=== PATIENT | male | born 1970 | race African-American/Black ===

== ENCOUNTER 2020-01-20 11:28 | Inpatient (IN) | payer OTHER ==
--- NOTE | 2020-01-20 13:20 | BHS.RME ---
Substance Use & Tx History - Substance Use History Heroin Substance amount: 3 bags Frequency of use: Daily Substance route: Inhalation (ex: sniffing or snorting) Alcohol Substance amount: 8 beers x 12 oz Frequency of use: Daily Substance route: Oral - Last Treatment Date of last treatment: 2015 Where was last treatment: Detox Physical/Psych/Mental Status - Behavior Eye Contact: Normal - Cooperativeness Cooperativeness: Cooperative - Thinking Thought Processes: Logical Thought content: Future oriented - Physical Health Problems Is patient presently having any pain?: No Does patient presently have any injuries (include location): No Does patient currently have a fever: Yes (99.1) COWS - Scale Resting Pulse: 0= [place] 80 or Below Sweatin= Chills/Flushing Restless Observation: 1= Difficult to Sit Still Pupil Size: 0= Normal to Room Light Bone or Joint Aches: 0= None Runny Nose/ Eye Tearin= None GI Upset > 30mins: 2= Nausea/Diarrhea Tremor Observation: 0= None Yawning Observation: 0= None Anxiety or Irritability: 1=Feels Anxious/Irritable Goose Flesh Skin: 0=Smooth Skin COWS Score: 5 CIWA Nausea/Vomitin Muscle Tremors: None Anxiety: 1-Mildly Anxious Agitation: 1-Slight > Activity Paroxysmal Sweats: 1-Minimal Palms Moist Orientation: 0-Oriented Tacttile Disturbances: 0-None Auditory Disturbances: 0-None Visual Disturbances: 2-Mild Sensitivity Headache: 0-None Present CIWA-Ar Total Score: 7
--- NOTE | 2020-01-20 13:24 | HP ---
COWS - Scale Resting Pulse: 0= [place] 80 or Below Sweatin= Chills/Flushing Restless Observation: 1= Difficult to Sit Still Pupil Size: 0= Normal to Room Light Bone or Joint Aches: 0= None Runny Nose/ Eye Tearin= None GI Upset > 30mins: 2= Nausea/Diarrhea Tremor Observation: 0= None Yawning Observation: 0= None Anxiety or Irritability: 1=Feels Anxious/Irritable Goose Flesh Skin: 0=Smooth Skin COWS Score: 5 CIWA Score Nausea/Vomitin Muscle Tremors: None Anxiety: 1-Mildly Anxious Agitation: 1-Slight > Activity Paroxysmal Sweats: 1-Minimal Palms Moist Orientation: 0-Oriented Tacttile Disturbances: 0-None Auditory Disturbances: 0-None Visual Disturbances: 2-Mild Sensitivity Headache: 0-None Present CIWA-Ar Total Score: 7 - Admission Criteria OASAS Guidelines: Admission for Medically Managed Detox: Requires at least one of the followin. CIWA greater than 12 2. Seizures within the past 24 hours 3. Delirium tremens within the past 24 hours 4. Hallucinations within the past 24 hours 5. Acute intervention needed for co occurring medical disorder 6. Acute intervention needed for co occurring psychiatric disorder 7. Severe withdrawal that cannot be handled at a lower level of care (continued vomiting, continued diarrhea, abnormal vital signs) requiring intravenous medication and/or fluids 8. Admitting History and Physical - Smoking History Smoking history: Current every day smoker Have you smoked in the past 12 months: Yes Aproximately how many cigarettes per day: 5 - Alcohol/Substance Use Hx Alcohol Use: Yes (BEER) Admission [facility] Allergies/Adverse Reactions: Allergies Allergy/AdvReac Type Severity Reaction Status Date / Time No Known Allergies Allergy Verified 01/20/20 13:52 History of Present Illness: 49 y.o. male requesting detox from heroin and alcohol use . denies blackouts , seizures or tremors . denies OD . Latest use this morning 3 bags heroin : 3 bags/day since 2017 etoh : 8 beers/day x 12 oz , latest use this morning 3 beers. cocaine : not daily tobacco : 07/23 ppd PMHX : HTN PSHX : umbilical hernia 2 yrs ago PSych : denies current SI / HI , + past psychiatric hospitalization for MDD Exam Limitations: No Limitations - Review of Systems Constitutional: See HPI EENT: reports: No Symptoms Reported Respiratory: reports: No Symptoms reported Cardiac: reports: No Symptoms Reported GI: reports: See HPI, Diarrhea, Nausea, Vomiting : reports: No Symptoms Reported Musculoskeletal: reports: No Symptoms Reported Integumentary: reports: No Symptoms Reported Neuro: reports: No Symptoms reported Endocrine: reports: No Symptoms Reported Hematology: reports: No Symptoms Reported Psychiatric: reports: Orientated x3, Anxious Patient History - Patient Medical History Hx Anemia: No Hx Asthma: No Hx Chronic Obstructive Pulmonary Disease (COPD): No Hx Cancer: No Hx Cardiac Disorders: No Hx Congestive Heart Failure: No Hx Hypertension: Yes Hx Hypercholesterolemia: No Hx Pacemaker: No HX Cerebrovascular Accident: No Hx Seizures: No Hx Dementia: No Hx Diabetes: No Hx Gastrointestinal Disorders: No Hx Liver Disease: No Hx Genitourinary Disorders: No Hx Sexually Transmitted Disorders: No Hx Renal Disease (ESRD): No Hx Thyroid Disease: No Hx Human Immunodeficiency Virus (HIV): No Hx Hepatitis C: No Hx Depression: Yes Hx Suicide Attempt: Yes (cut right forearm in 12/2014) Hx Bipolar Disorder: Yes Hx Schizophrenia: Yes (schizoaffective disorder) - Patient Surgical History Past Surgical History: Yes Hx Neurologic Surgery: No Hx Cataract Extraction: No Hx Cardiac Surgery: No Hx Lung Surgery: No Hx Breast Surgery: No Hx Breast Biopsy: No Hx Abdominal Surgery: No Hx Appendectomy: Yes (at age 12) Hx Cholecystectomy: No Hx Genitourinary Surgery: No Hx Section: No Hx Orthopedic Surgery: No Other Surgical History: right inguinal hernia repair in 1984 Anesthesia Reaction: No - Smoking Cessation Smoking history: Current every day smoker Have you smoked in the past 12 months: Yes Aproximately how many cigarettes per day: 5 Hx Chewing Tobacco Use: No Initiated information on smoking cessation: Yes 'Breaking Loose' booklet given: 01/20/20 - Substances abused Alcohol Substance route: Oral Frequency: Daily Amount used: 8 beers Age of first use: 13 Date of last use: 01/20/20 Heroin Substance route: Inhalation Frequency: Daily Amount used: 3 bags Age of first use: 47 Date of last use: 01/20/20 Admission Physical Exam BHS - Physical General Appearance: Yes: Mild Distress, Anxious HEENTM: Yes: EOMI, Hearing grossly Normal, Normocephalic, Normal Voice Respiratory: Yes: Chest Non-Tender, Lungs Clear, Normal Breath Sounds, No Respiratory Distress, No Accessory Muscle Use Neck: Yes: No masses,lesions,Nodules, Trachea in good position Cardiology: Yes: Regular Rhythm, Regular Rate, S1, S2 Abdominal: Yes: Non Tender, Soft Back: Yes: Normal Inspection Musculoskeletal: Yes: full range of Motion, Gait Steady Extremities: Yes: Normal Capillary Refill, Normal Inspection, Normal Range of Motion, Non-Tender Neurological: Yes: Fully Oriented, Alert, Motor Strength 5/5, Normal Mood/Affect Integumentary: Yes: Warm, Other (R forearm scars form remote injury ( laceration , self- cutting )) - Diagnostic (1) Alcohol dependence Current Visit: Yes Status: Chronic Qualifiers: Substance use status: uncomplicated Qualified Code(s): F10.20 - Alcohol dependence, uncomplicated (2) Opioid dependence Current Visit: Yes Status: Chronic Qualifiers: Substance use status: with intoxication (3) Nicotine dependence Current Visit: Yes Status: Chronic Qualifiers: Nicotine product type: cigarettes Inpatient Rehab Admission - Rehab Decision to Admit Inpatient rehab admission?: No
[2020-01-20] MEDS ORDERED: IBUPROFEN 400 MG TABLET (FP) PO PRN (13:28)
[2020-01-20] MEDS ORDERED: BISMUTH SUBSALICYLATE 524 MG/30 ML UD PO PRN (13:28)
[2020-01-20] MEDS ORDERED: MAGNESIUM CITRATE 300 ML BOTTLE PO PRN (13:28)
[2020-01-20] MEDS ORDERED: MENTHOL/PHENOL 1 EACH UD MM PRN (13:28)
[2020-01-20] MEDS ORDERED: ACETAMINOPHEN 325 MG TABLET (FP) PO PRN ×2 (13:28)
[2020-01-20] MEDS ORDERED: hydrOXYzine PAMOATE 25 MG CAPSULE (FP) PO PRN (13:28)
[2020-01-20] MEDS ORDERED: MAG HYDROX/AL HYDROX/SIMETH 30 ML UNIT-DOSE CUP PO PRN (13:28)
[2020-01-20] MEDS ORDERED: MELATONIN 5 MG TABLETS PO PRN (13:28)
[2020-01-20] MEDS ORDERED: MAGNESIUM HYDROX 2400MG/30ML ORAL SUSPENSION 30 ML CUP PO PRN (13:28)
[2020-01-20] MEDS ORDERED: ONDANSETRON *ODT* 4 MG TABLET SL PRN (13:28)
[2020-01-20] MEDS ORDERED: cloNIDine HCL 0.1 MG TABLET PO PRN (13:31)
[2020-01-20] MEDS ORDERED: diazePAM 5 MG TABLET PO PRN (13:34)
[2020-01-20 13:58] VITALS: BMI 33.3
[2020-01-20] MEDS: diazePAM 5 MG TABLET PO SCH ×2 (14:40→21:48)
--- NOTE | 2020-01-20 16:09 | CONSULT ---
[facility] Psychiatric Consult - Data Date of interview: 01/20/20 Admission source: [facility] Identifying data: Patient is a 49 year old single male, father of two, unemployed, domiciled, and is supported by [facility]. This is one of multiple admissions for patient. Patient admitted to for alcohol and opioid dependence. Substance Abuse History: etoh : 8 beers/day x 12 oz , latest use this morning 3 beers. cocaine : not daily. tobacco : 07/23 ppd Medical History: umbilical hernia 2 yrs ago , hypertension. Psychiatric History: Mr. Andrew reports history of two psychiatric hospitali zations ([facility] in 2018 for depression), most recently at [facility] in [place] in 2019 for depressed mood. Patient reports history of MDD. Unable to recall medications prescribed. States that he last saw an outpatient psychiatrist five years ago while living in [place]. Patient is totally lost in follow up care. Mr. Andrew is a questionable historian. Previous note mention history of multiple psychiatric hospitalizations at [facility] and [facility] in [place], [place]. Patient has been treated with Effexor 25mg and seroquel 300mg. History of a suicide attempt via self-mutilation (wrist-cutting). Previous note reports a history of schizoaffective disorder. At present patient reports difficulty sleeping. Patient denies auditory/visual hallucinations, suicidal/homicidal ideation. Physical/Sexual Abuse/Trauma History: denies. Mental Status Exam - Mental Status Exam Alert and Oriented to: Time, Place, Person Cognitive Function: Good Patient Appearance: Well Groomed Mood: Withdrawn Affect: Mood Congruent Patient Behavior: Fatigued, Cooperative Speech Pattern: Appropriate Voice Loudness: Normal Thought Process: Goal Oriented Thought Disorder: Not Present Hallucinations: Denies Suicidal Ideation: Denies Homicidal Ideation: Denies Insight/Judgement: Poor Sleep: Poorly Appetite: Fair Muscle strength/Tone: Normal Gait/Station: Other (Did not observe patient's gait.) Psychiatric Findings - Problem List ([place] 1, 2,3) (1) Alcohol dependence Status: Acute Qualifiers: Substance use status: uncomplicated Qualified Code(s): F10.20 - Alcohol dependence, uncomplicated (2) Nicotine dependence Status: Chronic Qualifiers: Nicotine product type: cigarettes (3) Opioid dependence Status: Chronic Qualifiers: Substance use status: with intoxication (4) Substance-induced sleep disorder Status: Acute (5) History of schizoaffective disorder Status: Chronic - Initial Treatment Plan Initial Treatment Plan: Psychoeducation provided. Detoxification in progress. Will order Seroquel 100mg HS. Benefits and side effects discussed. Verbal consent given.
[2020-01-20] MEDS: QUEtiapine FUMARATE 100 MG TABLET (FP) PO SCH (21:48)
[2020-01-20] MEDS: THIAMINE HCL 100 MG TABLET (FP) PO SCH (21:48)
[2020-01-20] MEDS ORDERED: METHADONE HCL 10 MG TABLET (FOR DETOX USE ONLY) PO ONE (22:00)
[2020-01-21] MEDS: diazePAM 5 MG TABLET PO SCH ×3 (05:54→22:04)
[2020-01-21] MEDS ORDERED: METHADONE HCL 5 MG TABLET (FOR DETOX USE ONLY) PO ONE (10:00)
[2020-01-21] MEDS: PRENATAL VITAMINS W/ FOLIC ACID TABLET (FP) PO SCH (10:03)
[2020-01-21 10:11] LABS: HEMATOCRIT 39.3 % (35.4-49); HEMOGLOBIN 12.7 GM/dL (11.7-16.9); MCH 26.4 pg (25.7-33.7); MCHC 32.2 g/dl (32.0-35.9); MEAN CELL VOLUME 82.1 fl (80-96); MEAN PLT VOLUME 7.8 fl (7.5-11.1); PLATELET COUNT 261 K/MM3 (134-434); RBC 4.79 M/mm3 (4.00-5.60); RDW 16.2 % (11.9-15.9); WHITE BLOOD COUNT 6.1 K/mm3 (4.0-10.0)
[2020-01-21 10:15] LABS: ALBUMIN 3.8 g/dl (3.4-5.0); BLOOD UREA NITROGEN 14.3 mg/dL (7-18); CALCIUM 8.9 mg/dL (8.5-10.1); POTASSIUM 3.6 mmol/L (3.5-5.1)
[2020-01-21 10:21] LABS: BILIRUBIN,TOTAL 0.4 mg/dL (0.2-1); CREATININE 1.1 mg/dL (0.55-1.3); TOT PROT 7.7 g/dl (6.4-8.2)
[2020-01-21] MEDS: METHOCARBAMOL 500 MG TABLET PO PRN (12:24)
--- NOTE | 2020-01-21 15:49 | PN ---
[facility] CIWA - CIWA Score Nausea/Vomitin-No Nausea/No Vomiting Muscle Tremors: None Anxiety: 3 Agitation: 2 Paroxysmal Sweats: 1-Minimal Palms Moist Orientation: 0-Oriented Tacttile Disturbances: 0-None Auditory Disturbances: 1-Very Mild Visual Disturbances: 1-Very Mild Sensitivity Headache: 0-None Present CIWA-Ar Total Score: 8 S COWS - Scale Resting Pulse: 0= [place] 80 or Below Sweatin= Chills/Flushing Restless Observation: 1= Difficult to Sit Still Pupil Size: 0= Normal to Room Light Bone or Joint Aches: 2= Severe Diffuse Aches Runny Nose/ Eye Tearin= None GI Upset > 30mins: 0= None Tremor Observation of Outstretched Hands: 0= None Yawning Observation: 1= 1-2x During Session Anxiety or Irritability: 2=Irritable/Anxious Goose Flesh Skin: 3=Piloerection COWS Score: 10 S Progress Note (SOAP) Subjective: Body Aches, Sweating, Anxious, Interrupted Sleep. Objective: Patient A & O X 3, Observed Ambulating on Detox Unit Unassisted. In No Acute Distress. 01/21/20 15:48 Vital Signs Temperature 97.3 F L 01/21/20 12:27 Pulse Rate 66 01/21/20 12:27 Respiratory Rate 17 01/21/20 12:27 Blood Pressure 124/80 01/21/20 12:27 O2 Sat by Pulse Oximetry (%) 96 01/21/20 12:27 Laboratory Tests 01/21/20 01/21/20 01/21/20 07:30 07:30 07:30 WBC 6.1 RBC 4.79 Hgb 12.7 Hct 39.3 MCV 82.1 MCH 26.4 MCHC 32.2 RDW 16.2 H Plt Count 261 MPV 7.8 Sodium 137 Potassium 3.6 Chloride 103 Carbon Dioxide 28 Anion Gap 6 L BUN 14.3 Creatinine 1.1 Est GFR (CKD-EPI)AfAm 89.61 Est GFR (CKD-EPI)NonAf 77.32 Random Glucose 155 H Calcium 8.9 Total Bilirubin 0.4 AST 44 H ALT 43 Alkaline Phosphatase 84 Total Protein 7.7 Albumin 3.8 Syphilis Serology Non-reactive Lab Results noted. No known history of DM reported by Patient at time of Detox Admission Physical assessment. 01/21/20 15:49 Assessment: 01/21/20 15:49 WITHDRAWAL SYMPTOMS. HYPERGLYCEMIA. Plan: Continue Detox. Increase Daily Oral Water Intake. Fasting Glucose Level ordered for Tomorrow AM for elevated Random Glucose Level noted on Detox Admission laboratory assessment.
[2020-01-21] MEDS: QUEtiapine FUMARATE 100 MG TABLET (FP) PO SCH (22:04)
[2020-01-21] MEDS: THIAMINE HCL 100 MG TABLET (FP) PO SCH (22:05)
[2020-01-22] MEDS: diazePAM 5 MG TABLET PO SCH ×2 (05:34→17:21)
[2020-01-22] MEDS ORDERED: METHADONE HCL 10 MG TABLET (FOR DETOX USE ONLY) PO ONE (10:00)
[2020-01-22] MEDS: PRENATAL VITAMINS W/ FOLIC ACID TABLET (FP) PO SCH (10:40)
[2020-01-22] MEDS: METHOCARBAMOL 500 MG TABLET PO PRN (12:25)
--- NOTE | 2020-01-22 12:41 | PN ---
[facility] CIWA - CIWA Score Nausea/Vomitin-No Nausea/No Vomiting Muscle Tremors: 2 Anxiety: 2 Agitation: 2 Paroxysmal Sweats: No Perspiration Orientation: 0-Oriented Tacttile Disturbances: 0-None Auditory Disturbances: 0-None Visual Disturbances: 0-None Headache: 0-None Present CIWA-Ar Total Score: 6 [facility] COWS - Scale Resting Pulse: 0= [place] 80 or Below Sweatin= Chills/Flushing Restless Observation: 1= Difficult to Sit Still Pupil Size: 0= Normal to Room Light Bone or Joint Aches: 1= Mild Discomfort Runny Nose/ Eye Tearin= None GI Upset > 30mins: 0= None Tremor Observation of Outstretched Hands: 1= Tremor [place], Not Seen Yawning Observation: 0= None Anxiety or Irritability: 2=Irritable/Anxious Goose Flesh Skin: 0=Smooth Skin COWS Score: 6 S Progress Note (SOAP) Subjective: Complaints of chills, anxiety, body aches and shakes. Objective: 01/22/20 12:39 Vital Signs 01/22/20 01/22/20 01/22/20 05:21 06:28 08:31 Temperature 97.5 F L 98.2 F Pulse Rate 68 72 Respiratory 16 16 18 Rate Blood Pressure 131/86 154/89 O2 Sat by Pulse 97 Oximetry (%) Laboratory Last Values WBC 6.1 K/mm3 (4.0-10.0) 01/21/20 07:30 RBC 4.79 M/mm3 (4.00-5.60) 01/21/20 07:30 Hgb 12.7 GM/dL (11.7-16.9) 01/21/20 07:30 Hct 39.3 % (35.4-49) 01/21/20 07:30 MCV 82.1 fl (80-96) 01/21/20 07:30 MCH 26.4 pg (25.7-33.7) 01/21/20 07:30 MCHC 32.2 g/dl (32.0-35.9) 01/21/20 07:30 RDW 16.2 % (11.9-15.9) H 01/21/20 07:30 Plt Count 261 K/MM3 (134-434) 01/21/20 07:30 MPV 7.8 fl (7.5-11.1) 01/21/20 07:30 Sodium 137 mmol/L (136-145) 01/21/20 07:30 Potassium 3.6 mmol/L (3.5-5.1) 01/21/20 07:30 Chloride 103 mmol/L (98-107) 01/21/20 07:30 Carbon Dioxide 28 mmol/L (21-32) 01/21/20 07:30 Anion Gap 6 MMOL/L (8-16) L 01/21/20 07:30 BUN 14.3 mg/dL (7-18) 01/21/20 07:30 Creatinine 1.1 mg/dL (0.55-1.3) 01/21/20 07:30 Est GFR (CKD-EPI)AfAm 89.61 01/21/20 07:30 Est GFR (CKD-EPI)NonAf 77.32 01/21/20 07:30 Random Glucose 155 mg/dL (74-106) H 01/21/20 07:30 Fasting Glucose 93 mg/dL (74-106) 01/22/20 07:35 Calcium 8.9 mg/dL (8.5-10.1) 01/21/20 07:30 Total Bilirubin 0.4 mg/dL (0.2-1) 01/21/20 07:30 AST 44 U/L (15-37) H 01/21/20 07:30 ALT 43 U/L (13-61) 01/21/20 07:30 Alkaline Phosphatase 84 U/L (45-117) 01/21/20 07:30 Total Protein 7.7 g/dl (6.4-8.2) 01/21/20 07:30 Albumin 3.8 g/dl (3.4-5.0) 01/21/20 07:30 Syphilis Serology Non-reactive (NONREACTIVE) 01/21/20 07:30 Labs reviewed. Assessment: 01/22/20 12:39 Alert and oriented x3, in no acute respiratory distress Full ROM, skin warm to touch, ambulatory on unit without assistance. Mild withdrawal symptoms. Plan: Continue detox protocol.
--- NOTE | 2020-01-22 14:24 | EKG ---
Test Reason : Blood Pressure : / mmHG Vent. Rate : 077 BPM Atrial Rate : 077 BPM P-R Int : 158 ms QRS Dur : 102 ms QT Int : 406 ms P-R-T Axes : 059 065 049 degrees QTc Int : 459 ms NORMAL SINUS RHYTHM POSSIBLE LEFT ATRIAL ENLARGEMENT BORDERLINE ECG NO PREVIOUS ECGS AVAILABLE Confirmed by ALBERTO ANDERSON MD ([id number]) on 01/22/2020 2:24:10 PM Referred By: Confirmed By:ALBERTO ANDERSON MD
[2020-01-22] MEDS: QUEtiapine FUMARATE 100 MG TABLET (FP) PO SCH (21:52)
[2020-01-22] MEDS: THIAMINE HCL 100 MG TABLET (FP) PO SCH (21:52)
[2020-01-23] MEDS ORDERED: diazePAM 5 MG TABLET PO ONE (06:00)
[2020-01-23] MEDS ORDERED: METHADONE HCL 5 MG TABLET (FOR DETOX USE ONLY) PO ONE (06:00)
[2020-01-23] MEDS: PRENATAL VITAMINS W/ FOLIC ACID TABLET (FP) PO SCH (10:06)
--- NOTE | 2020-01-23 11:53 | PN ---
[facility] CIWA - CIWA Score Nausea/Vomitin-No Nausea/No Vomiting Muscle Tremors: None Anxiety: 0-No Anxiety, at Ease Agitation: 1-Slight > Activity Paroxysmal Sweats: No Perspiration Orientation: 0-Oriented Tacttile Disturbances: 0-None Auditory Disturbances: 0-None Visual Disturbances: 0-None Headache: 0-None Present CIWA-Ar Total Score: 1 S COWS - Scale Resting Pulse: 0= [place] 80 or Below Sweatin= No chills or Flushing Restless Observation: 0= Sits Still Pupil Size: 0= Normal to Room Light Bone or Joint Aches: 0= None Runny Nose/ Eye Tearin= None GI Upset > 30mins: 0= None Tremor Observation of Outstretched Hands: 0= None Yawning Observation: 0= None Anxiety or Irritability: 1=Feels Anxious/Irritable Goose Flesh Skin: 0=Smooth Skin COWS Score: 1 [facility] Progress Note (SOAP) Subjective: alert,no complaint Objective: 01/23/20 11:48 Vital Signs Temperature 97.8 F 01/23/20 08:28 Pulse Rate 72 01/23/20 08:28 Respiratory Rate 18 01/23/20 08:28 Blood Pressure 134/88 01/23/20 08:28 O2 Sat by Pulse Oximetry (%) 95 01/23/20 05:35 withdrawal signs and symptom 01/23/20 11:50 Laboratory Last Values WBC 6.1 K/mm3 (4.0-10.0) 01/21/20 07:30 RBC 4.79 M/mm3 (4.00-5.60) 01/21/20 07:30 Hgb 12.7 GM/dL (11.7-16.9) 01/21/20 07:30 Hct 39.3 % (35.4-49) 01/21/20 07:30 MCV 82.1 fl (80-96) 01/21/20 07:30 MCH 26.4 pg (25.7-33.7) 01/21/20 07:30 MCHC 32.2 g/dl (32.0-35.9) 01/21/20 07:30 RDW 16.2 % (11.9-15.9) H 01/21/20 07:30 Plt Count 261 K/MM3 (134-434) 01/21/20 07:30 MPV 7.8 fl (7.5-11.1) 01/21/20 07:30 Sodium 137 mmol/L (136-145) 01/21/20 07:30 Potassium 3.6 mmol/L (3.5-5.1) 01/21/20 07:30 Chloride 103 mmol/L (98-107) 01/21/20 07:30 Carbon Dioxide 28 mmol/L (21-32) 01/21/20 07:30 Anion Gap 6 MMOL/L (8-16) L 01/21/20 07:30 BUN 14.3 mg/dL (7-18) 01/21/20 07:30 Creatinine 1.1 mg/dL (0.55-1.3) 01/21/20 07:30 Est GFR (CKD-EPI)AfAm 89.61 01/21/20 07:30 Est GFR (CKD-EPI)NonAf 77.32 01/21/20 07:30 Random Glucose 155 mg/dL (74-106) H 01/21/20 07:30 Fasting Glucose 93 mg/dL (74-106) 01/22/20 07:35 Calcium 8.9 mg/dL (8.5-10.1) 01/21/20 07:30 Total Bilirubin 0.4 mg/dL (0.2-1) 01/21/20 07:30 AST 44 U/L (15-37) H 01/21/20 07:30 ALT 43 U/L (13-61) 01/21/20 07:30 Alkaline Phosphatase 84 U/L (45-117) 01/21/20 07:30 Total Protein 7.7 g/dl (6.4-8.2) 01/21/20 07:30 Albumin 3.8 g/dl (3.4-5.0) 01/21/20 07:30 Syphilis Serology Non-reactive (NONREACTIVE) 01/21/20 07:30 COVID-19 (NAGI) Not detected (Not Detected) 01/20/20 14:00 Assessment: 01/23/20 11:51 detox completed,no withdrawal symptom Plan: stable for discharge today,follow up with after care program as arrangement
--- NOTE | 2020-01-23 11:53 | DS ---
[facility] Detox Discharge Summary Admission Date: 01/20/20 Discharge Date: 01/23/20 - History Present History: Alcohol Dependence, Cocaine Dependence, Opioid Dependence Additional Comments: alert,oriented x 3 ambulation on the unit lung clear on auscultation bilaterally abdomen soft,no distension,no pain detox completed,no withdrawal symptom stable for discharge today total time for discharge 35 minutes follow up with after care program [facility] as arrangement,chest xray to be done today for positive ppd Pertinent Past History: schizoaffective disorder hypertension - Physical Exam Results Vital Signs: Vital Signs Temperature 97.8 F 01/23/20 08:28 Pulse Rate 72 01/23/20 08:28 Respiratory Rate 18 01/23/20 08:28 Blood Pressure 134/88 01/23/20 08:28 O2 Sat by Pulse Oximetry (%) 95 01/23/20 05:35 Pertinent Admission Physical Exam Findings: withdrawal signs and symptom Laboratory Last Values WBC 6.1 K/mm3 (4.0-10.0) 01/21/20 07:30 RBC 4.79 M/mm3 (4.00-5.60) 01/21/20 07:30 Hgb 12.7 GM/dL (11.7-16.9) 01/21/20 07:30 Hct 39.3 % (35.4-49) 01/21/20 07:30 MCV 82.1 fl (80-96) 01/21/20 07:30 MCH 26.4 pg (25.7-33.7) 01/21/20 07:30 MCHC 32.2 g/dl (32.0-35.9) 01/21/20 07:30 RDW 16.2 % (11.9-15.9) H 01/21/20 07:30 Plt Count 261 K/MM3 (134-434) 01/21/20 07:30 MPV 7.8 fl (7.5-11.1) 01/21/20 07:30 Sodium 137 mmol/L (136-145) 01/21/20 07:30 Potassium 3.6 mmol/L (3.5-5.1) 01/21/20 07:30 Chloride 103 mmol/L (98-107) 01/21/20 07:30 Carbon Dioxide 28 mmol/L (21-32) 01/21/20 07:30 Anion Gap 6 MMOL/L (8-16) L 01/21/20 07:30 BUN 14.3 mg/dL (7-18) 01/21/20 07:30 Creatinine 1.1 mg/dL (0.55-1.3) 01/21/20 07:30 Est GFR (CKD-EPI)AfAm 89.61 01/21/20 07:30 Est GFR (CKD-EPI)NonAf 77.32 01/21/20 07:30 Random Glucose 155 mg/dL (74-106) H 01/21/20 07:30 Fasting Glucose 93 mg/dL (74-106) 01/22/20 07:35 Calcium 8.9 mg/dL (8.5-10.1) 01/21/20 07:30 Total Bilirubin 0.4 mg/dL (0.2-1) 01/21/20 07:30 AST 44 U/L (15-37) H 01/21/20 07:30 ALT 43 U/L (13-61) 01/21/20 07:30 Alkaline Phosphatase 84 U/L (45-117) 01/21/20 07:30 Total Protein 7.7 g/dl (6.4-8.2) 01/21/20 07:30 Albumin 3.8 g/dl (3.4-5.0) 01/21/20 07:30 Syphilis Serology Non-reactive (NONREACTIVE) 01/21/20 07:30 COVID-19 (NAGI) Not detected (Not Detected) 01/20/20 14:00 Vital Signs Temperature 97.8 F 01/23/20 08:28 Pulse Rate 72 01/23/20 08:28 Respiratory Rate 18 01/23/20 08:28 Blood Pressure 134/88 01/23/20 08:28 O2 Sat by Pulse Oximetry (%) 95 01/23/20 05:35 - Treatment Hospital Course: Detox Protocol Followed, Detoxed Safely, Responded well, Discharged Condition Good, Rehab Referral Accepted Patient has Accepted a Rehab Referral to: [facility] - Medication Discharge Medications: Ambulatory Orders NK [No Known Home Medication] 01/20/20 - Diagnosis (1) Alcohol dependence Current Visit: Yes Status: Acute Qualifiers: Substance use status: uncomplicated Qualified Code(s): F10.20 - Alcohol dependence, uncomplicated (2) Positive PPD, treated Current Visit: Yes Status: Acute (3) Opioid dependence with withdrawal Current Visit: No Status: Acute (4) Schizoaffective disorder Current Visit: No Status: Chronic - AMA Did Patient Leave Against Medical Advice: No
[2020-01-23 14:04] VITALS: BP 153/101; PULSE 70; TEMP 97.1
[2020-01-23] MEDS ORDERED: LISINOPRIL 20 MG TABLET (FP) ONE (16:51)
[2020-01-23] MEDS ORDERED: amLODIPine BESYLATE 10 MG TABLET (FP) ONE (16:51)
== END 2020-01-23 14:19 | disposition other institution (70) | DRG 897 ==
LOC: YASAS 11:28 → Y6N 13:50
PROVIDERS: ADMIT Allergy & Immunology; ATTEND Allergy & Immunology
PROC: HZ2ZZZZ Detoxification Services for Substance Abuse Treatment (ICD-10-PCS; principal; 2020-01-20)
DX: F10.230 Alcohol dependence with withdrawal, uncomplicated (principal); F19.282 Other psychoactive substance dependence with psychoactive substance-induced sleep disorder; F11.23 Opioid dependence with withdrawal; F14.10 Cocaine abuse, uncomplicated; F17.210 Nicotine dependence, cigarettes, uncomplicated; F25.9 Schizoaffective disorder, unspecified; F32.9 Major depressive disorder, single episode, unspecified; I10 Essential (primary) hypertension; R73.9 Hyperglycemia, unspecified; Z91.5 Personal history of self-harm; Z56.0 Unemployment, unspecified
CPT/HCPCS: 36415; 80053; 82947; 85027; 86780; 93005; 93010; J0735; Q0162; U0003

== ENCOUNTER 2020-01-23 14:27 | Inpatient (IN) | payer OTHER ==
--- NOTE | 2020-01-23 15:13 | HP ---
[facility] Re[facility] Assess/Revision - Admission History Admitted to Rehab from: [facility] [place] Date of Admission to Rehab: 01/23/2020 - Findings Detox History & Physical reviewed: Yes Concur with findings: Yes Comments/Additional Findings: for rehab as protocol Inpatient Rehab Admission - Rehab Decision to Admit Inpatient rehab admission?: Yes - Initial Determination Are CD services needed?: Yes Free of communicable disease: Yes Not in need of hospitalization: Yes - Rehab Admission Criteria Previous failed treatment: Yes Poor recovery environment: Yes Comorbidities: Yes Lacks judgement: No Patient is meeting Inpatient Rehab admission criteria:: Yes
[2020-01-23] MEDS ORDERED: MENTHOL/PHENOL 1 EACH UD MM PRN (15:14)
[2020-01-23] MEDS ORDERED: NICOTINE POLACRILEX 2 MG GUM BUC PRN (15:14)
[2020-01-23] MEDS ORDERED: MAG HYDROX/AL HYDROX/SIMETH 30 ML UNIT-DOSE CUP PO PRN (15:14)
[2020-01-23] MEDS ORDERED: LOPERAMIDE HCL 2 MG CAPSULE PO PRN (15:14)
[2020-01-23] MEDS ORDERED: MAGNESIUM HYDROX 2400MG/30ML ORAL SUSPENSION 30 ML CUP PO PRN (15:14)
[2020-01-23] MEDS ORDERED: MAGNESIUM CITRATE 300 ML BOTTLE PO PRN (15:14)
[2020-01-23] MEDS ORDERED: guaiFENesin 200 MG/10 ML 10 ML UNIT-DOSE CUPS PO PRN (15:14)
[2020-01-23] MEDS ORDERED: P-EPHED 60MG/TRIPROLIDI 2.5MG TABLET PO PRN (15:14)
[2020-01-23] MEDS: amLODIPine BESYLATE 10 MG TABLET (FP) PO SCH (16:51)
[2020-01-23] MEDS: LISINOPRIL 20 MG TABLET (FP) PO SCH (16:51)
[2020-01-23] MEDS: hydrOXYzine PAMOATE 25 MG CAPSULE (FP) PO SCH ×2 (18:30→21:28)
[2020-01-23] MEDS: MELATONIN 5 MG TABLETS PO SCH (21:27)
[2020-01-23] MEDS: THIAMINE HCL 100 MG TABLET (FP) PO SCH (21:27)
[2020-01-23] MEDS ORDERED: QUEtiapine FUMARATE 100 MG TABLET (FP) PO SCH (22:00)
[2020-01-24] MEDS: hydrOXYzine PAMOATE 25 MG CAPSULE (FP) PO SCH ×5 (06:22→21:05)
--- NOTE | 2020-01-24 09:06 | CONSULT ---
[facility] Psychiatric Consult - Data Date of interview: 01/24/20 Admission source: [facility] Identifying data: Patient is a 49 year old single male, father of two, unemployed, domiciled, and is supported by [facility]. This is one of multiple admissions for patient. Patient admitted to [facility] re[facility] for alcohol and opioid dependence. Substance Abuse History: Smoking Cessation. Smoking history: Current every day smoker. Have you smoked in the past 12 months: Yes. Aproximately how many cigarettes per day: 5. Hx Chewing Tobacco Use: No. Initiated information on smoking cessation: Yes. 'Breaking Loose' booklet given: 01/20/20. - Substances abused. Alcohol. Substance route: Oral. Frequency: Daily. Amount used: 8 beers. Age of first use: 13. Date of last use: 01/20/20. Heroin. Substance route: Inhalation. Frequency: Daily. Amount used: 3 bags. Age of first use: 47. Date of last use: 01/20/20 Medical History: umbilical hernia , hypertension. Psychiatric History: Mr. Andrew reports history of multiple psychiatric hospitalizations ([facility] + [facility] + [facility]), most recently at [facility] in [place] in 2019 due to hearing voices. While in detox Mr. Andrew reported a history of MDD but today states that he has a diagnosis of Schizoaffective disorder. Patient is totally lost in follow up care. States that he last had an outpatient psychiatrist at [facility] outpatient clinic in the summer of 2018 and was prescribed Zoloft 150mg daily + Seroquel 300mg HS. History of a suicide attempt via self-mutilation (wrist-cutting). Patient denies auditory/visual hallucinations, suicidal/homicidal ideation. No psychosis noted. Physical/Sexual Abuse/Trauma History: denies. Mental Status Exam - Mental Status Exam Alert and Oriented to: Time, Place, Person Cognitive Function: Good Patient Appearance: Well Groomed Mood: Hopeful Affect: Appropriate Patient Behavior: Appropriate, Cooperative Speech Pattern: Clear Voice Loudness: Normal Thought Process: Intact, Goal Oriented Thought Disorder: Not Present Hallucinations: Denies Suicidal Ideation: Denies Homicidal Ideation: Denies Insight/Judgement: Poor Sleep: Fair Appetite: Fair Muscle strength/Tone: Normal Gait/Station: Normal Psychiatric Findings - Problem List ([place] 1, 2,3) (1) Alcohol dependence Current Visit: Yes Status: Acute Qualifiers: Substance use status: uncomplicated Qualified Code(s): F10.20 - Alcohol dependence, uncomplicated (2) Substance-induced sleep disorder Current Visit: Yes Status: Acute (3) History of schizoaffective disorder Current Visit: Yes Status: Chronic (4) Opioid dependence Current Visit: Yes Status: Chronic Qualifiers: Substance use status: with intoxication - Initial Treatment Plan Initial Treatment Plan: Psychoeducation provided. Detoxification in progress. 1) Will d/c seroquel 100mg. Patient in agreement to an increase of seroquel. Will order Zoloft 50mg daily + Seroquel 200mg HS. Benefits and side effects discussed. Verbal consent given.
[2020-01-24] MEDS: amLODIPine BESYLATE 10 MG TABLET (FP) PO SCH (09:38)
[2020-01-24] MEDS: PRENATAL VITAMINS W/ FOLIC ACID TABLET (FP) PO SCH (09:38)
[2020-01-24] MEDS: LISINOPRIL 20 MG TABLET (FP) PO SCH (09:38)
[2020-01-24] MEDS: NICOTINE 7 MG/24 HOURS TOPICAL PATCH TD SCH (09:39)
--- NOTE | 2020-01-24 12:22 | PN ---
[facility] Progress Note Note: Patient with +PPD, CXR reviewed, no s/s of TB or other infection.
[2020-01-24] MEDS: ACETAMINOPHEN 325 MG TABLET (FP) PO PRN (15:31)
[2020-01-24] MEDS: MELATONIN 5 MG TABLETS PO SCH (21:04)
[2020-01-24] MEDS: THIAMINE HCL 100 MG TABLET (FP) PO SCH (21:04)
[2020-01-24] MEDS: QUEtiapine FUMARATE 200 MG TABLET PO SCH (21:05)
[2020-01-25] MEDS: hydrOXYzine PAMOATE 25 MG CAPSULE (FP) PO SCH ×5 (06:20→21:12)
[2020-01-25] MEDS: SERTRALINE HCL 50 MG TABLET (FP) PO SCH (09:40)
[2020-01-25] MEDS: amLODIPine BESYLATE 10 MG TABLET (FP) PO SCH (09:40)
[2020-01-25] MEDS: LISINOPRIL 20 MG TABLET (FP) PO SCH (09:40)
[2020-01-25] MEDS: NICOTINE 7 MG/24 HOURS TOPICAL PATCH TD SCH (09:40)
[2020-01-25] MEDS: PRENATAL VITAMINS W/ FOLIC ACID TABLET (FP) PO SCH (09:40)
[2020-01-25] MEDS: ACETAMINOPHEN 325 MG TABLET (FP) PO PRN (15:28)
[2020-01-25] MEDS: MELATONIN 5 MG TABLETS PO SCH (21:12)
[2020-01-25] MEDS: QUEtiapine FUMARATE 200 MG TABLET PO SCH (21:12)
[2020-01-25] MEDS: THIAMINE HCL 100 MG TABLET (FP) PO SCH (21:12)
[2020-01-26] MEDS: hydrOXYzine PAMOATE 25 MG CAPSULE (FP) PO SCH ×5 (06:26→21:47)
[2020-01-26] MEDS: LISINOPRIL 20 MG TABLET (FP) PO SCH (09:51)
[2020-01-26] MEDS: amLODIPine BESYLATE 10 MG TABLET (FP) PO SCH (09:51)
[2020-01-26] MEDS: SERTRALINE HCL 50 MG TABLET (FP) PO SCH (09:51)
[2020-01-26] MEDS: NICOTINE 7 MG/24 HOURS TOPICAL PATCH TD SCH (09:52)
[2020-01-26] MEDS: PRENATAL VITAMINS W/ FOLIC ACID TABLET (FP) PO SCH (09:52)
[2020-01-26] MEDS: MELATONIN 5 MG TABLETS PO SCH (21:47)
[2020-01-26] MEDS: QUEtiapine FUMARATE 200 MG TABLET PO SCH (21:47)
[2020-01-26] MEDS: THIAMINE HCL 100 MG TABLET (FP) PO SCH (21:47)
[2020-01-27] MEDS: hydrOXYzine PAMOATE 25 MG CAPSULE (FP) PO SCH (06:22)
[2020-01-27] MEDS: SERTRALINE HCL 50 MG TABLET (FP) PO SCH (10:02)
[2020-01-27] MEDS: hydrOXYzine PAMOATE 25 MG CAPSULE (FP) PO PRN (10:02)
[2020-01-27] MEDS: LISINOPRIL 20 MG TABLET (FP) PO SCH (10:02)
[2020-01-27] MEDS: PRENATAL VITAMINS W/ FOLIC ACID TABLET (FP) PO SCH (10:02)
[2020-01-27] MEDS: NICOTINE 7 MG/24 HOURS TOPICAL PATCH TD SCH (10:02)
[2020-01-27] MEDS: amLODIPine BESYLATE 10 MG TABLET (FP) PO SCH (10:02)
--- NOTE | 2020-01-27 12:17 | CONSULT ---
[facility] Psychiatric Consult - Data Date of interview: 01/27/20 Admission source: [facility] Identifying data: Patient is a 49 year old single male, father of two, unemployed, domiciled, and is supported by [facility]. This is one of multiple admissions for patient. Patient admitted to [facility] rehab for alcohol and opioid dependence. Substance Abuse History: Smoking Cessation. Smoking history: Current every day smoker. Have you smoked in the past 12 months: Yes. Aproximately how many cigarettes per day: 5. Hx Chewing Tobacco Use: No. Initiated information on smoking cessation: Yes. 'Breaking Loose' booklet given: 01/20/20. - Substances abused. Alcohol. Substance route: Oral. Frequency: Daily. Amount used: 8 beers. Age of first use: 13. Date of last use: 01/20/20. Heroin. Substance route: Inhalation. Frequency: Daily. Amount used: 3 bags. Age of first use: 47. Date of last use: 01/20/20 Medical History: umbilical hernia , hypertension Psychiatric History: Patient seen in detox. History remains consistent. Mr. Andrew reports history of multiple psychiatric hospitalizations ([facility] + [facility] + [facility]), most recently at [facility] in [place] in 2019 due to hearing voices. While in detox Mr. Andrew reported a history of MDD but after speaking to patient again several days later he reported a diagnosis of Schizoaffective disorder. Patient is totally lost in follow up care. States that he last had an outpatient psychiatrist at [facility] outpatient clinic in the summer of 2018 and was prescribed Zoloft 150mg daily + Seroquel 300mg HS. Patient also reports history of accepting seroquel 400m HS. History of a suicide attempt via self-mutilation (wrist-cutting). Mr. Andrew stated that he begun to hear voices last night and this morning. States that it is a several voices speaking to each other. Denies hearing voices at the moment but does report feeling sad and slightly irritable. Denies command auditory hallucinations. Patient denies having thoughts to hurt self or others. Patient wants to remain in inpatient rehab to receive treatment and is in agreement in an increase of psychotropic medications. Physical/Sexual Abuse/Trauma History: denies. Mental Status Exam - Mental Status Exam Alert and Oriented to: Time, Place, Person Cognitive Function: Good Patient Appearance: Well Groomed Mood: Sad Affect: Mood Congruent Patient Behavior: Appropriate Speech Pattern: Appropriate Voice Loudness: Normal Thought Process: Intact, Goal Oriented Thought Disorder: Not Present Hallucinations: Denies Suicidal Ideation: Denies Homicidal Ideation: Denies Insight/Judgement: Poor Sleep: Fair Appetite: Fair Muscle strength/Tone: Normal Gait/Station: Normal Psychiatric Findings - Problem List ([place] 1, 2,3) (1) Alcohol dependence Current Visit: Yes Status: Acute Qualifiers: Substance use status: uncomplicated Qualified Code(s): F10.20 - Alcohol dependence, uncomplicated (2) Substance-induced sleep disorder Current Visit: Yes Status: Acute (3) History of schizoaffective disorder Current Visit: Yes Status: Chronic (4) Opioid dependence Current Visit: Yes Status: Chronic Qualifiers: Substance use status: with intoxication - Initial Treatment Plan Initial Treatment Plan: Psychoeducation provided. Detoxification in progress. 1) Will d/c zoloft 50mg + Seroquel 200mg. 2) Will order one time dose of seroquel 100mg. 3) Will order Zoloft 100mg + Seroquel 100mg daily + 300mg HS. Benefits and side effects discussed. Verbal consent given.
[2020-01-27] MEDS ORDERED: QUEtiapine FUMARATE 100 MG TABLET (FP) PO ONE (12:51)
[2020-01-27] MEDS: QUEtiapine FUMARATE 300 MG TABLET PO SCH (21:10)
[2020-01-27] MEDS: MELATONIN 5 MG TABLETS PO SCH (21:10)
[2020-01-27] MEDS: THIAMINE HCL 100 MG TABLET (FP) PO SCH (21:10)
[2020-01-28] MEDS: amLODIPine BESYLATE 10 MG TABLET (FP) PO SCH (09:30)
[2020-01-28] MEDS: NICOTINE 7 MG/24 HOURS TOPICAL PATCH TD SCH (09:30)
[2020-01-28] MEDS: PRENATAL VITAMINS W/ FOLIC ACID TABLET (FP) PO SCH (09:30)
[2020-01-28] MEDS: QUEtiapine FUMARATE 100 MG TABLET (FP) PO SCH (09:31)
[2020-01-28] MEDS: LISINOPRIL 20 MG TABLET (FP) PO SCH (09:31)
[2020-01-28] MEDS: SERTRALINE HCL 50 MG TABLET (FP) PO SCH (09:31)
[2020-01-28] MEDS: QUEtiapine FUMARATE 300 MG TABLET PO SCH (21:23)
[2020-01-28] MEDS: THIAMINE HCL 100 MG TABLET (FP) PO SCH (21:23)
[2020-01-28] MEDS: MELATONIN 5 MG TABLETS PO SCH (21:23)
[2020-01-29] MEDS: SERTRALINE HCL 50 MG TABLET (FP) PO SCH (10:18)
[2020-01-29] MEDS: amLODIPine BESYLATE 10 MG TABLET (FP) PO SCH (10:18)
[2020-01-29] MEDS: PRENATAL VITAMINS W/ FOLIC ACID TABLET (FP) PO SCH (10:18)
[2020-01-29] MEDS: QUEtiapine FUMARATE 100 MG TABLET (FP) PO SCH (10:18)
[2020-01-29] MEDS: NICOTINE 7 MG/24 HOURS TOPICAL PATCH TD SCH (10:18)
[2020-01-29] MEDS: LISINOPRIL 20 MG TABLET (FP) PO SCH (10:18)
[2020-01-29] MEDS: THIAMINE HCL 100 MG TABLET (FP) PO SCH (21:17)
[2020-01-29] MEDS: MELATONIN 5 MG TABLETS PO SCH (21:17)
[2020-01-29] MEDS: QUEtiapine FUMARATE 300 MG TABLET PO SCH (21:17)
[2020-01-30] MEDS: QUEtiapine FUMARATE 100 MG TABLET (FP) PO SCH (09:33)
[2020-01-30] MEDS: PRENATAL VITAMINS W/ FOLIC ACID TABLET (FP) PO SCH (09:33)
[2020-01-30] MEDS: amLODIPine BESYLATE 10 MG TABLET (FP) PO SCH (09:33)
[2020-01-30] MEDS: LISINOPRIL 20 MG TABLET (FP) PO SCH (09:33)
[2020-01-30] MEDS: NICOTINE 7 MG/24 HOURS TOPICAL PATCH TD SCH (09:35)
[2020-01-30] MEDS: SERTRALINE HCL 50 MG TABLET (FP) PO SCH (09:35)
[2020-01-30] MEDS: QUEtiapine FUMARATE 300 MG TABLET PO SCH (21:44)
[2020-01-30] MEDS: MELATONIN 5 MG TABLETS PO SCH (21:44)
[2020-01-30] MEDS: THIAMINE HCL 100 MG TABLET (FP) PO SCH (21:44)
[2020-01-31] MEDS: LISINOPRIL 20 MG TABLET (FP) PO SCH (09:47)
[2020-01-31] MEDS: SERTRALINE HCL 50 MG TABLET (FP) PO SCH (09:47)
[2020-01-31] MEDS: QUEtiapine FUMARATE 100 MG TABLET (FP) PO SCH (09:47)
[2020-01-31] MEDS: amLODIPine BESYLATE 10 MG TABLET (FP) PO SCH (09:48)
[2020-01-31] MEDS: PRENATAL VITAMINS W/ FOLIC ACID TABLET (FP) PO SCH (09:48)
[2020-01-31] MEDS: NICOTINE 7 MG/24 HOURS TOPICAL PATCH TD SCH (09:48)
[2020-01-31] MEDS: hydrOXYzine PAMOATE 25 MG CAPSULE (FP) PO PRN (09:48)
[2020-01-31] MEDS: THIAMINE HCL 100 MG TABLET (FP) PO SCH (21:30)
[2020-01-31] MEDS: QUEtiapine FUMARATE 300 MG TABLET PO SCH (21:30)
[2020-01-31] MEDS: MELATONIN 5 MG TABLETS PO SCH (21:30)
[2020-02-01] MEDS: SERTRALINE HCL 50 MG TABLET (FP) PO SCH (10:18)
[2020-02-01] MEDS: QUEtiapine FUMARATE 100 MG TABLET (FP) PO SCH (10:18)
[2020-02-01] MEDS: PRENATAL VITAMINS W/ FOLIC ACID TABLET (FP) PO SCH (10:18)
[2020-02-01] MEDS: hydrOXYzine PAMOATE 25 MG CAPSULE (FP) PO PRN (10:18)
[2020-02-01] MEDS: NICOTINE 7 MG/24 HOURS TOPICAL PATCH TD SCH (10:18)
[2020-02-01] MEDS: amLODIPine BESYLATE 10 MG TABLET (FP) PO SCH (10:18)
[2020-02-01] MEDS: LISINOPRIL 20 MG TABLET (FP) PO SCH (10:18)
[2020-02-01] MEDS: IBUPROFEN 400 MG TABLET (FP) PO PRN (14:47)
[2020-02-01] MEDS: THIAMINE HCL 100 MG TABLET (FP) PO SCH (21:25)
[2020-02-01] MEDS: QUEtiapine FUMARATE 300 MG TABLET PO SCH (21:25)
[2020-02-01] MEDS: MELATONIN 5 MG TABLETS PO SCH (21:25)
[2020-02-02] MEDS: LISINOPRIL 20 MG TABLET (FP) PO SCH (10:29)
[2020-02-02] MEDS: SERTRALINE HCL 50 MG TABLET (FP) PO SCH (10:29)
[2020-02-02] MEDS: amLODIPine BESYLATE 10 MG TABLET (FP) PO SCH (10:29)
[2020-02-02] MEDS: PRENATAL VITAMINS W/ FOLIC ACID TABLET (FP) PO SCH (10:29)
[2020-02-02] MEDS: NICOTINE 7 MG/24 HOURS TOPICAL PATCH TD SCH (10:29)
[2020-02-02] MEDS: QUEtiapine FUMARATE 100 MG TABLET (FP) PO SCH (10:29)
[2020-02-02] MEDS: IBUPROFEN 400 MG TABLET (FP) PO PRN (19:18)
[2020-02-02] MEDS: QUEtiapine FUMARATE 300 MG TABLET PO SCH (21:07)
[2020-02-02] MEDS: THIAMINE HCL 100 MG TABLET (FP) PO SCH (21:07)
[2020-02-02] MEDS: MELATONIN 5 MG TABLETS PO SCH (21:07)
[2020-02-03] MEDS: LISINOPRIL 20 MG TABLET (FP) PO SCH (10:43)
[2020-02-03] MEDS: NICOTINE 7 MG/24 HOURS TOPICAL PATCH TD SCH (10:43)
[2020-02-03] MEDS: PRENATAL VITAMINS W/ FOLIC ACID TABLET (FP) PO SCH (10:44)
[2020-02-03] MEDS: QUEtiapine FUMARATE 100 MG TABLET (FP) PO SCH (10:44)
[2020-02-03] MEDS: amLODIPine BESYLATE 10 MG TABLET (FP) PO SCH (10:44)
[2020-02-03] MEDS: SERTRALINE HCL 50 MG TABLET (FP) PO SCH (10:44)
[2020-02-03] MEDS: IBUPROFEN 400 MG TABLET (FP) PO PRN (15:48)
[2020-02-03] MEDS: QUEtiapine FUMARATE 300 MG TABLET PO SCH (21:24)
[2020-02-03] MEDS: MELATONIN 5 MG TABLETS PO SCH (21:24)
[2020-02-03] MEDS: THIAMINE HCL 100 MG TABLET (FP) PO SCH (21:24)
[2020-02-04] MEDS: amLODIPine BESYLATE 10 MG TABLET (FP) PO SCH (10:02)
[2020-02-04] MEDS: QUEtiapine FUMARATE 100 MG TABLET (FP) PO SCH (10:02)
[2020-02-04] MEDS: LISINOPRIL 20 MG TABLET (FP) PO SCH (10:02)
[2020-02-04] MEDS: SERTRALINE HCL 50 MG TABLET (FP) PO SCH (10:02)
[2020-02-04] MEDS: NICOTINE 7 MG/24 HOURS TOPICAL PATCH TD SCH (10:02)
[2020-02-04] MEDS: PRENATAL VITAMINS W/ FOLIC ACID TABLET (FP) PO SCH (10:02)
[2020-02-04] MEDS: IBUPROFEN 400 MG TABLET (FP) PO PRN (10:02)
[2020-02-04] MEDS: THIAMINE HCL 100 MG TABLET (FP) PO SCH (21:00)
[2020-02-04] MEDS: QUEtiapine FUMARATE 300 MG TABLET PO SCH (21:01)
[2020-02-04] MEDS: MELATONIN 5 MG TABLETS PO SCH (21:01)
[2020-02-05] MEDS: PRENATAL VITAMINS W/ FOLIC ACID TABLET (FP) PO SCH (10:21)
[2020-02-05] MEDS: amLODIPine BESYLATE 10 MG TABLET (FP) PO SCH (10:21)
[2020-02-05] MEDS: QUEtiapine FUMARATE 100 MG TABLET (FP) PO SCH (10:21)
[2020-02-05] MEDS: NICOTINE 7 MG/24 HOURS TOPICAL PATCH TD SCH (10:21)
[2020-02-05] MEDS: SERTRALINE HCL 50 MG TABLET (FP) PO SCH (10:21)
[2020-02-05] MEDS: LISINOPRIL 20 MG TABLET (FP) PO SCH (10:21)
[2020-02-05] MEDS: hydrOXYzine PAMOATE 25 MG CAPSULE (FP) PO PRN (15:22)
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
[2020-02-05] MEDS: IBUPROFEN 400 MG TABLET (FP) PO PRN (18:40)
[2020-02-05] MEDS: THIAMINE HCL 100 MG TABLET (FP) PO SCH (21:54)
[2020-02-05] MEDS ORDERED: QUEtiapine FUMARATE 200 MG TABLET PO SCH (22:00)
[2020-02-05] MEDS ORDERED: MELATONIN 5 MG TABLETS PO SCH (22:00)
[2020-02-06 07:27] VITALS: TEMP 97.8
[2020-02-06 09:30] VITALS: BP 147/95; PULSE 75
[2020-02-06] MEDS ORDERED: SERTRALINE HCL 50 MG TABLET (FP) PO SCH (10:00)
[2020-02-06] MEDS: PRENATAL VITAMINS W/ FOLIC ACID TABLET (FP) PO SCH (10:27)
[2020-02-06] MEDS: hydrOXYzine PAMOATE 25 MG CAPSULE (FP) PO PRN (10:27)
[2020-02-06] MEDS: LISINOPRIL 20 MG TABLET (FP) PO SCH (10:28)
[2020-02-06] MEDS: QUEtiapine FUMARATE 100 MG TABLET (FP) PO SCH (10:28)
[2020-02-06] MEDS: amLODIPine BESYLATE 10 MG TABLET (FP) PO SCH (10:28)
[2020-02-06] MEDS: NICOTINE 7 MG/24 HOURS TOPICAL PATCH TD SCH (10:31)
--- NOTE | 2020-02-06 13:18 | PN ---
[facility] Progress Note Note: Patient is discharged today. Scripts for 30 days supply of medications(Zoloft 150 mg/day, Seroquel 100 mg/day & 400 mg/hs) are electronically transmitted to [facility], [address] [place] [address]
--- NOTE | 2020-02-06 14:06 | DS ---
[facility] Re[facility] Discharge Summary - [facility] Discharge Summary Admission Date: 01/23/20 Discharge Date: 02/06/20 - History Present History: Alcohol dependence, Cocaine dependence, Opioid dependence - Discharge Physical Exam Vital Signs: Vital Signs Temperature 97.8 F 02/06/20 06:00 Pulse Rate 75 02/06/20 08:55 Respiratory Rate 20 02/06/20 06:00 Blood Pressure 147/95 02/06/20 08:55 O2 Sat by Pulse Oximetry (%) 96 02/06/20 06:00 ROS: patient denies fever, cough, sob, shakes, sweating, restlessness and opiod/etoh cravings PE: alert and oriented x 3 skin warm and dry neck supple, no jvd in nad ext full rom, amb ad bakari no tremors denies SI/HI A/P: alcohol/opiod dependence HTN Patient is medically stable for discharge Aftercare arranged for [facility], appt to be made by patient States having prescribed medication at home and does not require prescriptions - Treatment Discharge Condition: Discharge condition good Hospital Course: Patient discharged from rehab for alcohol/opiod dependence. He is medically stable and denies SI/HI. During rehab treatment, patient attended 1:1 counseling sessions, group meetings and evaluated and treated by psych team. Aftercare arranged for [facility] and patient prefers to arrange appointment independently. Patient encouraged to follow up with [facility] to maintain sobriety and prevent reoccurrence of substance use. - Medication Discharge Medications: Ambulatory Orders Amlodipine Besylate 10 mg PO DAILY 01/23/20 Lisinopril [Prinivil] 20 mg PO DAILY 01/23/20 Quetiapine Fumarate [Seroquel -] 100 mg PO HS #30 tablet 02/06/20 Quetiapine Fumarate [Seroquel -] 400 mg PO HS #30 tab 02/06/20 Sertraline HCl [Zoloft -] 150 mg PO DAILY #90 tablet 02/06/20 - Medication-Assisted Treatment (MAT) Medication-Assisted Treatment (MAT): No MAT Follow-up Referral: [facility] - Discharge Instructions Diet, activity, other medical instructions: Diet: [place], as tolerated Activity: ad bakari as tolerated Other medical instructions: F/U with PCP as recommended - Follow-up Referral Minutes to complete discharge: 35 - AMA Did Patient Leave Against Medical Advice: No
== END 2020-02-06 13:25 | disposition home or self-care (01) | DRG 895 ==
LOC: YASAS 14:27 → Y3W 14:29
PROVIDERS: ADMIT Allergy & Immunology; ATTEND Allergy & Immunology
PROC: HZ42ZZZ Group Counseling for Substance Abuse Treatment, Cognitive-Behavioral (ICD-10-PCS; principal; 2020-01-23)
DX: F10.20 Alcohol dependence, uncomplicated (principal); F11.20 Opioid dependence, uncomplicated; F14.20 Cocaine dependence, uncomplicated; F19.282 Other psychoactive substance dependence with psychoactive substance-induced sleep disorder; F17.210 Nicotine dependence, cigarettes, uncomplicated; F25.9 Schizoaffective disorder, unspecified; I10 Essential (primary) hypertension; K42.9 Umbilical hernia without obstruction or gangrene; R76.11 Nonspecific reaction to tuberculin skin test without active tuberculosis; Z91.5 Personal history of self-harm; Z56.0 Unemployment, unspecified
CPT/HCPCS: 71046-TC-FY

== ENCOUNTER 2020-08-24 08:06 | Inpatient (IN) | payer OTHER ==
[2020-08-24 08:53] VITALS: BMI 33.6
[2020-08-24] MEDS ORDERED: IBUPROFEN 400 MG TABLET (FP) PO PRN (08:59)
[2020-08-24] MEDS ORDERED: ONDANSETRON *ODT* 4 MG TABLET SL PRN (08:59)
[2020-08-24] MEDS ORDERED: NICOTINE POLACRILEX 2 MG GUM BUC PRN (08:59)
[2020-08-24] MEDS ORDERED: MAGNESIUM CITRATE 300 ML BOTTLE PO PRN (08:59)
[2020-08-24] MEDS ORDERED: ACETAMINOPHEN 325 MG TABLET (FP) PO PRN ×2 (08:59)
[2020-08-24] MEDS ORDERED: chlordiazePOXIDE HCL 25 MG CAPSULE PO PRN (08:59)
[2020-08-24] MEDS ORDERED: MAG HYDROX/AL HYDROX/SIMETH 30 ML UNIT-DOSE CUP PO PRN (08:59)
[2020-08-24] MEDS ORDERED: MAGNESIUM HYDROX 2400MG/30ML ORAL SUSPENSION 30 ML CUP PO PRN (08:59)
[2020-08-24] MEDS ORDERED: BISMUTH SUBSALICYLATE 262 MG/15 ML BTL PO PRN (08:59)
[2020-08-24] MEDS ORDERED: METHOCARBAMOL 500 MG TABLET PO PRN (08:59)
[2020-08-24] MEDS ORDERED: MENTHOL/PHENOL 1 EACH UD MM PRN (08:59)
[2020-08-24] MEDS ORDERED: hydrOXYzine PAMOATE 25 MG CAPSULE (FP) PO SCH (10:00)
[2020-08-24] MEDS: LOSARTAN POTASSIUM 50 MG TABLET PO SCH (10:01)
[2020-08-24] MEDS: amLODIPine BESYLATE 10 MG TABLET (FP) PO SCH (10:01)
[2020-08-24] MEDS: HYDROCHLOROTHIAZIDE 12.5 MG CAPSULE (FP) PO SCH (10:01)
[2020-08-24] MEDS: chlordiazePOXIDE HCL 25 MG CAPSULE PO SCH ×3 (10:01→22:25)
[2020-08-24] MEDS: PRENATAL VITAMINS W/ FOLIC ACID TABLET (FP) PO SCH (10:01)
[2020-08-24] MEDS: METOPROLOL TARTRATE 25 MG TABLET (FP) PO SCH (11:01)
[2020-08-24 11:09] LABS: POTASSIUM 3.9 mmol/L (3.5-5.1)
[2020-08-24 11:10] LABS: HEMATOCRIT 42.3 % (35.4-49); HEMOGLOBIN 14.1 GM/dL (11.7-16.9); MCH 27.1 pg (25.7-33.7); MCHC 33.4 g/dl (32.0-35.9); MEAN PLT VOLUME 7.8 fl (7.5-11.1); PLATELET COUNT 302 K/MM3 (134-434); RBC 5.22 M/mm3 (4.00-5.60); RDW 14.4 % (11.9-15.9); WHITE BLOOD COUNT 6.9 K/mm3 (4.0-10.0)
[2020-08-24 11:11] LABS: CALCIUM 9.5 mg/dL (8.5-10.1)
[2020-08-24 11:12] LABS: ALBUMIN 4.3 g/dl (3.4-5.0)
[2020-08-24 11:15] LABS: CREATININE 1.1 mg/dL (0.55-1.3)
[2020-08-24 11:16] LABS: BILIRUBIN,TOTAL 0.8 mg/dL (0.2-1)
[2020-08-24 11:18] LABS: TOT PROT 8.6 g/dl (6.4-8.2)
[2020-08-24] MEDS: QUEtiapine FUMARATE 50 MG TABLET PO SCH (22:25)
[2020-08-24] MEDS: MELATONIN 5 MG TABLETS PO SCH (22:25)
[2020-08-24] MEDS: THIAMINE HCL 100 MG TABLET (FP) PO SCH (22:26)
[2020-08-25] MEDS: chlordiazePOXIDE HCL 25 MG CAPSULE PO SCH ×2 (06:17→10:54)
[2020-08-25] MEDS: SERTRALINE HCL 50 MG TABLET (FP) PO SCH (10:53)
[2020-08-25] MEDS: LOSARTAN POTASSIUM 50 MG TABLET PO SCH (10:53)
[2020-08-25] MEDS: METOPROLOL TARTRATE 25 MG TABLET (FP) PO SCH (10:53)
[2020-08-25] MEDS: HYDROCHLOROTHIAZIDE 12.5 MG CAPSULE (FP) PO SCH (10:53)
[2020-08-25] MEDS: QUEtiapine FUMARATE 50 MG TABLET PO SCH ×2 (10:53→22:31)
[2020-08-25] MEDS: PRENATAL VITAMINS W/ FOLIC ACID TABLET (FP) PO SCH (10:53)
[2020-08-25] MEDS: amLODIPine BESYLATE 10 MG TABLET (FP) PO SCH (10:53)
[2020-08-25] MEDS ORDERED: LORazepam 1 MG TABLET PO PRN (12:26)
[2020-08-25] MEDS ORDERED: LORazepam 2 MG TABLET PO PRN (17:00)
[2020-08-25] MEDS: THIAMINE HCL 100 MG TABLET (FP) PO SCH (22:31)
[2020-08-25] MEDS: MELATONIN 5 MG TABLETS PO SCH (22:31)
[2020-08-26] MEDS ORDERED: chlordiazePOXIDE HCL 25 MG CAPSULE PO SCH (05:00)
[2020-08-26] MEDS: LORazepam 1 MG TABLET PO SCH ×4 (06:12→22:19)
[2020-08-26] MEDS: amLODIPine BESYLATE 10 MG TABLET (FP) PO SCH (10:06)
[2020-08-26] MEDS: LOSARTAN POTASSIUM 50 MG TABLET PO SCH (10:06)
[2020-08-26] MEDS: QUEtiapine FUMARATE 50 MG TABLET PO SCH ×2 (10:06→22:19)
[2020-08-26] MEDS: METOPROLOL TARTRATE 25 MG TABLET (FP) PO SCH (10:07)
[2020-08-26] MEDS: PRENATAL VITAMINS W/ FOLIC ACID TABLET (FP) PO SCH (10:07)
[2020-08-26] MEDS: HYDROCHLOROTHIAZIDE 12.5 MG CAPSULE (FP) PO SCH (10:07)
[2020-08-26] MEDS: SERTRALINE HCL 50 MG TABLET (FP) PO SCH (10:07)
[2020-08-26] MEDS: THIAMINE HCL 100 MG TABLET (FP) PO SCH (22:19)
[2020-08-26] MEDS: MELATONIN 5 MG TABLETS PO SCH (22:19)
[2020-08-27] MEDS ORDERED: chlordiazePOXIDE HCL 10 MG CAPSULE PO PRN
[2020-08-27] MEDS ORDERED: chlordiazePOXIDE HCL 10 MG CAPSULE PO SCH (05:00)
[2020-08-27] MEDS: LORazepam 0.5 MG TABLET PO SCH ×4 (06:17→22:03)
[2020-08-27] MEDS: SERTRALINE HCL 50 MG TABLET (FP) PO SCH (10:10)
[2020-08-27] MEDS: HYDROCHLOROTHIAZIDE 12.5 MG CAPSULE (FP) PO SCH (10:10)
[2020-08-27] MEDS: amLODIPine BESYLATE 10 MG TABLET (FP) PO SCH (10:10)
[2020-08-27] MEDS: PRENATAL VITAMINS W/ FOLIC ACID TABLET (FP) PO SCH (10:10)
[2020-08-27] MEDS: LOSARTAN POTASSIUM 50 MG TABLET PO SCH (10:11)
[2020-08-27] MEDS: QUEtiapine FUMARATE 50 MG TABLET PO SCH ×2 (10:11→22:03)
[2020-08-27] MEDS: METOPROLOL TARTRATE 25 MG TABLET (FP) PO SCH (10:11)
[2020-08-27] MEDS: hydrOXYzine PAMOATE 25 MG CAPSULE (FP) PO PRN ×2 (17:38→22:03)
[2020-08-27] MEDS: THIAMINE HCL 100 MG TABLET (FP) PO SCH (22:01)
[2020-08-27] MEDS: MELATONIN 5 MG TABLETS PO SCH (22:01)
[2020-08-28] MEDS ORDERED: LORazepam 0.5 MG TABLET PO PRN
[2020-08-28] MEDS ORDERED: chlordiazePOXIDE HCL 10 MG CAPSULE PO SCH (05:00)
[2020-08-28] MEDS ORDERED: LORazepam 0.5 MG TABLET PO ONE (05:00)
[2020-08-28 06:50] VITALS: TEMP 97.8
[2020-08-28 09:10] VITALS: BP 115/78; PULSE 76
[2020-08-28] MEDS: LOSARTAN POTASSIUM 50 MG TABLET PO SCH (10:10)
[2020-08-28] MEDS: HYDROCHLOROTHIAZIDE 12.5 MG CAPSULE (FP) PO SCH (10:10)
[2020-08-28] MEDS: amLODIPine BESYLATE 10 MG TABLET (FP) PO SCH (10:11)
[2020-08-28] MEDS: SERTRALINE HCL 50 MG TABLET (FP) PO SCH (10:11)
[2020-08-28] MEDS: METOPROLOL TARTRATE 25 MG TABLET (FP) PO SCH (10:11)
[2020-08-28] MEDS: QUEtiapine FUMARATE 50 MG TABLET PO SCH (10:11)
[2020-08-28] MEDS: PRENATAL VITAMINS W/ FOLIC ACID TABLET (FP) PO SCH (10:11)
[2020-08-29] MEDS ORDERED: chlordiazePOXIDE HCL 10 MG CAPSULE PO ONE (05:00)
== END 2020-08-28 14:54 | disposition left against medical advice (07) | DRG 894 ==
LOC: YASAS 08:06 → Y3N 09:09 → Y5N 08-28 13:16
PROVIDERS: ADMIT Allergy & Immunology; ATTEND Allergy & Immunology
PROC: HZ42ZZZ Group Counseling for Substance Abuse Treatment, Cognitive-Behavioral (ICD-10-PCS; principal; 2020-08-24)
DX: F10.20 Alcohol dependence, uncomplicated (principal); F14.20 Cocaine dependence, uncomplicated; F12.20 Cannabis dependence, uncomplicated; F17.210 Nicotine dependence, cigarettes, uncomplicated; I10 Essential (primary) hypertension
CPT/HCPCS: 36415; 80053; 84450; 85027; 86780; C9803; U0003

== ENCOUNTER 2020-10-28 16:40 | Inpatient (IN) | payer OTHER ==
[2020-10-28 17:45] VITALS: BMI 32.6
[2020-10-28] MEDS ORDERED: MENTHOL/PHENOL 1 EACH UD MM PRN (22:04)
[2020-10-28] MEDS ORDERED: METHOCARBAMOL 500 MG TABLET PO PRN (22:04)
[2020-10-28] MEDS ORDERED: chlordiazePOXIDE HCL 25 MG CAPSULE PO PRN (22:04)
[2020-10-28] MEDS ORDERED: ACETAMINOPHEN 325 MG TABLET (FP) PO PRN ×2 (22:04)
[2020-10-28] MEDS ORDERED: MAGNESIUM HYDROX 2400MG/30ML ORAL SUSPENSION 30 ML CUP PO PRN (22:04)
[2020-10-28] MEDS ORDERED: MAGNESIUM CITRATE 300 ML BOTTLE PO PRN (22:04)
[2020-10-28] MEDS ORDERED: ONDANSETRON *ODT* 4 MG TABLET SL PRN (22:04)
[2020-10-28] MEDS ORDERED: MAG HYDROX/AL HYDROX/SIMETH 30 ML UNIT-DOSE CUP PO PRN (22:04)
[2020-10-28] MEDS ORDERED: BISMUTH SUBSALICYLATE 524 MG/30 ML UD PO PRN (22:04)
[2020-10-28] MEDS ORDERED: NICOTINE POLACRILEX 2 MG GUM BUC PRN (22:04)
[2020-10-28] MEDS: chlordiazePOXIDE HCL 25 MG CAPSULE PO SCH (23:42)
[2020-10-29] MEDS: chlordiazePOXIDE HCL 25 MG CAPSULE PO SCH ×4 (06:51→22:42)
[2020-10-29] MEDS: SERTRALINE HCL 50 MG TABLET (FP) PO SCH (10:24)
[2020-10-29] MEDS: PRENATAL VITAMINS W/ FOLIC ACID TABLET (FP) PO SCH (10:24)
[2020-10-29] MEDS: NICOTINE 14 MG/24 HOURS TOPICAL PATCH TD SCH (10:24)
[2020-10-29 11:35] LABS: HEMATOCRIT 40.9 % (35.4-49); HEMOGLOBIN 13.5 GM/dL (11.7-16.9); MCH 26.6 pg (25.7-33.7); MCHC 33.1 g/dl (32.0-35.9); MEAN CELL VOLUME 80.6 fl (80-96); MEAN PLT VOLUME 8.3 fl (7.5-11.1); PLATELET COUNT 286 K/MM3 (134-434); RBC 5.08 M/mm3 (4.00-5.60); RDW 14.5 % (11.9-15.9); WHITE BLOOD COUNT 5.5 K/mm3 (4.0-10.0)
[2020-10-29 11:45] LABS: ALBUMIN 3.6 g/dl (3.4-5.0); CALCIUM 8.7 mg/dL (8.5-10.1)
[2020-10-29 11:46] LABS: BLOOD UREA NITROGEN 12.4 mg/dL (7-18)
[2020-10-29 11:47] LABS: BILIRUBIN,TOTAL 0.6 mg/dL (0.2-1); TOT PROT 7.4 g/dl (6.4-8.2)
[2020-10-29 11:49] LABS: CREATININE 1.1 mg/dL (0.55-1.3)
[2020-10-29] MEDS: MELATONIN 5 MG TABLETS PO SCH (22:39)
[2020-10-29] MEDS: QUEtiapine FUMARATE 100 MG TABLET (FP) PO SCH (22:39)
[2020-10-29] MEDS: THIAMINE HCL 100 MG TABLET (FP) PO SCH (22:39)
[2020-10-30] MEDS: chlordiazePOXIDE HCL 25 MG CAPSULE PO SCH ×4 (06:12→22:47)
[2020-10-30] MEDS: PRENATAL VITAMINS W/ FOLIC ACID TABLET (FP) PO SCH (10:27)
[2020-10-30] MEDS: SERTRALINE HCL 50 MG TABLET (FP) PO SCH (10:27)
[2020-10-30] MEDS: NICOTINE 14 MG/24 HOURS TOPICAL PATCH TD SCH (10:33)
[2020-10-30] MEDS ORDERED: POTASSIUM CHLORIDE TABS 20 MEQ TABLET.ER (FP) PO ONE (10:55)
[2020-10-30] MEDS: IBUPROFEN 400 MG TABLET (FP) PO PRN (16:40)
[2020-10-30] MEDS: THIAMINE HCL 100 MG TABLET (FP) PO SCH (22:47)
[2020-10-30] MEDS: MELATONIN 5 MG TABLETS PO SCH (22:48)
[2020-10-30] MEDS: QUEtiapine FUMARATE 100 MG TABLET (FP) PO SCH (22:48)
[2020-10-31] MEDS ORDERED: chlordiazePOXIDE HCL 10 MG CAPSULE PO PRN
[2020-10-31 06:06] LABS: SARS-CoV-2 NAA Not Detected (Not Detected)
[2020-10-31] MEDS: chlordiazePOXIDE HCL 10 MG CAPSULE PO SCH ×4 (07:22→21:59)
[2020-10-31] MEDS: NICOTINE 14 MG/24 HOURS TOPICAL PATCH TD SCH (10:28)
[2020-10-31] MEDS: PRENATAL VITAMINS W/ FOLIC ACID TABLET (FP) PO SCH (10:28)
[2020-10-31] MEDS: SERTRALINE HCL 50 MG TABLET (FP) PO SCH (10:29)
[2020-10-31] MEDS: IBUPROFEN 400 MG TABLET (FP) PO PRN (10:30)
[2020-10-31] MEDS ORDERED: LIDOCAINE VISCOUS 2% ORAL/TOP 20 ML UNIT-DOSE CUP MM PRN (10:44)
[2020-10-31] MEDS: MELATONIN 5 MG TABLETS PO SCH (21:56)
[2020-10-31] MEDS: THIAMINE HCL 100 MG TABLET (FP) PO SCH (21:56)
[2020-10-31] MEDS: QUEtiapine FUMARATE 100 MG TABLET (FP) PO SCH (21:56)
[2020-11-01] MEDS: chlordiazePOXIDE HCL 10 MG CAPSULE PO SCH ×2 (06:47→17:58)
[2020-11-01] MEDS: PRENATAL VITAMINS W/ FOLIC ACID TABLET (FP) PO SCH (09:38)
[2020-11-01] MEDS: NICOTINE 14 MG/24 HOURS TOPICAL PATCH TD SCH (09:38)
[2020-11-01] MEDS: IBUPROFEN 400 MG TABLET (FP) PO PRN ×2 (09:38→17:59)
[2020-11-01] MEDS: SERTRALINE HCL 50 MG TABLET (FP) PO SCH (09:38)
[2020-11-01] MEDS: amLODIPine BESYLATE 10 MG TABLET (FP) PO SCH (14:13)
[2020-11-01] MEDS: HYDROCHLOROTHIAZIDE 12.5 MG CAPSULE (FP) PO SCH (14:13)
[2020-11-01] MEDS: LOSARTAN POTASSIUM 50 MG TABLET PO SCH (14:13)
[2020-11-01 22:05] VITALS: BP 138/99; PULSE 69; TEMP 96.8
[2020-11-01] MEDS: THIAMINE HCL 100 MG TABLET (FP) PO SCH (22:20)
[2020-11-01] MEDS: MELATONIN 5 MG TABLETS PO SCH (22:20)
[2020-11-01] MEDS: QUEtiapine FUMARATE 100 MG TABLET (FP) PO SCH (22:20)
[2020-11-02] MEDS ORDERED: chlordiazePOXIDE HCL 10 MG CAPSULE PO ONE (05:00)
[2020-11-02] MEDS: HYDROCHLOROTHIAZIDE 12.5 MG CAPSULE (FP) PO SCH (09:09)
[2020-11-02] MEDS: PRENATAL VITAMINS W/ FOLIC ACID TABLET (FP) PO SCH (09:09)
[2020-11-02] MEDS: NICOTINE 14 MG/24 HOURS TOPICAL PATCH TD SCH (09:09)
[2020-11-02] MEDS: amLODIPine BESYLATE 10 MG TABLET (FP) PO SCH (09:09)
[2020-11-02] MEDS: LOSARTAN POTASSIUM 50 MG TABLET PO SCH (09:09)
[2020-11-02] MEDS: SERTRALINE HCL 50 MG TABLET (FP) PO SCH (09:09)
[2020-11-02] MEDS ORDERED: metoPROLOL SUCCINATE 25 MG TAB.SR.24H (FP) PO SCH (10:00)
== END 2020-11-02 08:49 | disposition other institution (70) | DRG 897 ==
LOC: YASAS 16:40 → Y3N 22:00
PROVIDERS: ADMIT Allergy & Immunology; ATTEND Allergy & Immunology
PROC: HZ2ZZZZ Detoxification Services for Substance Abuse Treatment (ICD-10-PCS; principal; 2020-10-28)
DX: F10.230 Alcohol dependence with withdrawal, uncomplicated (principal); F11.20 Opioid dependence, uncomplicated; F17.210 Nicotine dependence, cigarettes, uncomplicated; F10.282 Alcohol dependence with alcohol-induced sleep disorder; F25.9 Schizoaffective disorder, unspecified; F31.9 Bipolar disorder, unspecified; I10 Essential (primary) hypertension; Z86.11 Personal history of tuberculosis; Z98.890 Other specified postprocedural states; Z56.0 Unemployment, unspecified
CPT/HCPCS: 36415; 80053; 84132; 85027; 86780; C9803; U0003; U0005

== ENCOUNTER 2020-12-22 13:07 | Inpatient (IN) | payer OTHER ==
[2020-12-22] MEDS ORDERED: ACETAMINOPHEN 325 MG TABLET (FP) PO PRN (19:32)
[2020-12-22] MEDS ORDERED: MAG HYDROX/AL HYDROX/SIMETH 30 ML UNIT-DOSE CUP PO PRN (19:32)
[2020-12-22] MEDS ORDERED: guaiFENesin 200 MG/10 ML 10 ML UNIT-DOSE CUPS PO PRN (19:32)
[2020-12-22] MEDS ORDERED: MAGNESIUM CITRATE 300 ML BOTTLE PO PRN (19:32)
[2020-12-22] MEDS ORDERED: IBUPROFEN 400 MG TABLET (FP) PO PRN (19:32)
[2020-12-22] MEDS ORDERED: P-EPHED 60MG/TRIPROLIDI 2.5MG TABLET PO PRN (19:32)
[2020-12-22] MEDS ORDERED: MAGNESIUM HYDROX 2400MG/30ML ORAL SUSPENSION 30 ML CUP PO PRN (19:32)
[2020-12-22] MEDS ORDERED: LOPERAMIDE HCL 2 MG CAPSULE PO PRN (19:32)
[2020-12-22 19:54] VITALS: BMI 33.5
[2020-12-22] MEDS: MELATONIN 5 MG TABLETS PO SCH (22:01)
[2020-12-22] MEDS: hydrOXYzine PAMOATE 25 MG CAPSULE (FP) PO SCH (22:01)
[2020-12-22] MEDS: THIAMINE HCL 100 MG TABLET (FP) PO SCH (22:01)
[2020-12-23] MEDS: hydrOXYzine PAMOATE 25 MG CAPSULE (FP) PO SCH ×5 (06:55→21:08)
[2020-12-23] MEDS: metoPROLOL SUCCINATE 25 MG TAB.SR.24H (FP) PO SCH (09:34)
[2020-12-23] MEDS: HYDROCHLOROTHIAZIDE 12.5 MG CAPSULE (FP) PO SCH (09:34)
[2020-12-23] MEDS: PRENATAL VITAMINS W/ FOLIC ACID TABLET (FP) PO SCH (09:34)
[2020-12-23] MEDS: amLODIPine BESYLATE 10 MG TABLET (FP) PO SCH (09:34)
[2020-12-23] MEDS: LOSARTAN POTASSIUM 50 MG TABLET PO SCH (09:34)
[2020-12-23] MEDS ORDERED: PATIENT'S OWN MEDICATION (NON-FORMULARY) (Hydrochlorothiazide [Hydrochlorothiazide] 12.5 M PO SCH (10:00)
[2020-12-23] MEDS: SERTRALINE HCL 50 MG TABLET (FP) PO SCH (11:36)
[2020-12-23] MEDS: QUEtiapine FUMARATE 100 MG TABLET (FP) PO SCH ×2 (11:36→21:08)
[2020-12-23 13:28] LABS: EPI CELLS 33 /uL (0-25.1); HYALINE CASTS 8 /uL (0-3.1); URINE APPEARANCE TURBID; URINE BACTERIA 14 /uL (0-1359); URINE BILIRUBIN 1+ (NEGATIVE); URINE COLOR DK YELLOW; URINE GLUCOSE (UA) NEGATIVE (NEGATIVE); URINE KETONE TRACE (NEGATIVE); URINE LEUK ESTERASE TRACE (NEGATIVE); URINE NITRITE NEGATIVE (NEGATIVE); URINE PROTEIN 2+ (NEGATIVE); URINE RBC 7 /uL (0-23.9); URINE WBC 50 /uL (0-25.8)
[2020-12-23] MEDS: MELATONIN 5 MG TABLETS PO SCH (21:08)
[2020-12-23] MEDS: THIAMINE HCL 100 MG TABLET (FP) PO SCH (21:08)
[2020-12-24] MEDS: hydrOXYzine PAMOATE 25 MG CAPSULE (FP) PO SCH ×5 (06:23→21:23)
[2020-12-24] MEDS: metoPROLOL SUCCINATE 25 MG TAB.SR.24H (FP) PO SCH (09:46)
[2020-12-24] MEDS: HYDROCHLOROTHIAZIDE 12.5 MG CAPSULE (FP) PO SCH (09:46)
[2020-12-24] MEDS: SERTRALINE HCL 50 MG TABLET (FP) PO SCH (09:47)
[2020-12-24] MEDS: amLODIPine BESYLATE 10 MG TABLET (FP) PO SCH (09:47)
[2020-12-24] MEDS: QUEtiapine FUMARATE 100 MG TABLET (FP) PO SCH ×2 (09:47→21:24)
[2020-12-24] MEDS: LOSARTAN POTASSIUM 50 MG TABLET PO SCH (09:47)
[2020-12-24] MEDS: PRENATAL VITAMINS W/ FOLIC ACID TABLET (FP) PO SCH (09:47)
[2020-12-24 10:16] LABS: HEMATOCRIT 38.6 % (35.4-49); HEMOGLOBIN 12.8 GM/dL (11.7-16.9); MCHC 33.2 g/dl (32.0-35.9); MEAN CELL VOLUME 81.3 fl (80-96); MEAN PLT VOLUME 7.8 fl (7.5-11.1); PLATELET COUNT 292 K/MM3 (134-434); RBC 4.75 M/mm3 (4.00-5.60); RDW 15.5 % (11.9-15.9); WHITE BLOOD COUNT 4.7 K/mm3 (4.0-10.0)
[2020-12-24 10:35] LABS: ALBUMIN 3.6 g/dl (3.4-5.0); BLOOD UREA NITROGEN 12.4 mg/dL (7-18); CALCIUM 9.1 mg/dL (8.5-10.1)
[2020-12-24 10:38] LABS: CREATININE 0.9 mg/dL (0.55-1.3)
[2020-12-24 10:40] LABS: BILIRUBIN,TOTAL 0.2 mg/dL (0.2-1); TOT PROT 7.2 g/dl (6.4-8.2)
[2020-12-24] MEDS: THIAMINE HCL 100 MG TABLET (FP) PO SCH (21:23)
[2020-12-24] MEDS: MELATONIN 5 MG TABLETS PO SCH (21:23)
[2020-12-25 06:58] LABS: EPI CELLS 15 /uL (0-25.1); HYALINE CASTS 0 /uL (0-3.1); PH,URINE 6.5 (5.0-8.0); URINE APPEARANCE CLEAR; URINE BACTERIA 104 /uL (0-1359); URINE BILIRUBIN NEGATIVE (NEGATIVE); URINE COLOR YELLOW; URINE GLUCOSE (UA) NEGATIVE (NEGATIVE); URINE KETONE NEGATIVE (NEGATIVE); URINE LEUK ESTERASE TRACE (NEGATIVE); URINE NITRITE NEGATIVE (NEGATIVE); URINE PROTEIN TRACE (NEGATIVE); URINE RBC 1 /uL (0-23.9); URINE UROBILINOGEN 0.2 mg/dL (0.2-1.0); URINE WBC 23 /uL (0-25.8)
[2020-12-25] MEDS: hydrOXYzine PAMOATE 25 MG CAPSULE (FP) PO SCH ×5 (06:58→21:06)
[2020-12-25] MEDS: metoPROLOL SUCCINATE 25 MG TAB.SR.24H (FP) PO SCH (10:21)
[2020-12-25] MEDS: QUEtiapine FUMARATE 100 MG TABLET (FP) PO SCH ×2 (10:21→21:07)
[2020-12-25] MEDS: SERTRALINE HCL 50 MG TABLET (FP) PO SCH (10:21)
[2020-12-25] MEDS: HYDROCHLOROTHIAZIDE 12.5 MG CAPSULE (FP) PO SCH (10:21)
[2020-12-25] MEDS: PRENATAL VITAMINS W/ FOLIC ACID TABLET (FP) PO SCH (10:21)
[2020-12-25] MEDS: amLODIPine BESYLATE 10 MG TABLET (FP) PO SCH (10:21)
[2020-12-25] MEDS: LOSARTAN POTASSIUM 50 MG TABLET PO SCH (10:22)
[2020-12-25] MEDS ORDERED: PT OWN MED DRAWER 7, Y5N ONE (10:23)
[2020-12-25] MEDS: MELATONIN 5 MG TABLETS PO SCH (21:06)
[2020-12-25] MEDS: THIAMINE HCL 100 MG TABLET (FP) PO SCH (21:06)
[2020-12-26] MEDS: hydrOXYzine PAMOATE 25 MG CAPSULE (FP) PO SCH ×2 (06:34→10:00)
[2020-12-26] MEDS: QUEtiapine FUMARATE 100 MG TABLET (FP) PO SCH ×2 (09:59→21:08)
[2020-12-26] MEDS: amLODIPine BESYLATE 10 MG TABLET (FP) PO SCH (09:59)
[2020-12-26] MEDS: PRENATAL VITAMINS W/ FOLIC ACID TABLET (FP) PO SCH (09:59)
[2020-12-26] MEDS: HYDROCHLOROTHIAZIDE 12.5 MG CAPSULE (FP) PO SCH (09:59)
[2020-12-26] MEDS: metoPROLOL SUCCINATE 25 MG TAB.SR.24H (FP) PO SCH (09:59)
[2020-12-26] MEDS: SERTRALINE HCL 50 MG TABLET (FP) PO SCH (09:59)
[2020-12-26] MEDS: LOSARTAN POTASSIUM 50 MG TABLET PO SCH (09:59)
[2020-12-26] MEDS ORDERED: hydrOXYzine PAMOATE 25 MG CAPSULE (FP) PO PRN (11:06)
[2020-12-26] MEDS: MELATONIN 5 MG TABLETS PO SCH (21:07)
[2020-12-26] MEDS: THIAMINE HCL 100 MG TABLET (FP) PO SCH (21:08)
[2020-12-27] MEDS: HYDROCHLOROTHIAZIDE 12.5 MG CAPSULE (FP) PO SCH (10:01)
[2020-12-27] MEDS: SERTRALINE HCL 50 MG TABLET (FP) PO SCH (10:01)
[2020-12-27] MEDS: metoPROLOL SUCCINATE 25 MG TAB.SR.24H (FP) PO SCH (10:01)
[2020-12-27] MEDS: amLODIPine BESYLATE 10 MG TABLET (FP) PO SCH (10:01)
[2020-12-27] MEDS: QUEtiapine FUMARATE 100 MG TABLET (FP) PO SCH ×2 (10:01→21:03)
[2020-12-27] MEDS: PRENATAL VITAMINS W/ FOLIC ACID TABLET (FP) PO SCH (10:01)
[2020-12-27] MEDS: LOSARTAN POTASSIUM 50 MG TABLET PO SCH (10:46)
[2020-12-27] MEDS: MELATONIN 5 MG TABLETS PO SCH (21:03)
[2020-12-27] MEDS: THIAMINE HCL 100 MG TABLET (FP) PO SCH (21:03)
[2020-12-28] MEDS: QUEtiapine FUMARATE 100 MG TABLET (FP) PO SCH ×2 (10:17→21:29)
[2020-12-28] MEDS: HYDROCHLOROTHIAZIDE 12.5 MG CAPSULE (FP) PO SCH (10:17)
[2020-12-28] MEDS: amLODIPine BESYLATE 10 MG TABLET (FP) PO SCH (10:17)
[2020-12-28] MEDS: PRENATAL VITAMINS W/ FOLIC ACID TABLET (FP) PO SCH (10:17)
[2020-12-28] MEDS: metoPROLOL SUCCINATE 25 MG TAB.SR.24H (FP) PO SCH (10:17)
[2020-12-28] MEDS: LOSARTAN POTASSIUM 50 MG TABLET PO SCH (10:17)
[2020-12-28] MEDS: SERTRALINE HCL 50 MG TABLET (FP) PO SCH (10:17)
[2020-12-28] MEDS: MELATONIN 5 MG TABLETS PO SCH (21:29)
[2020-12-28] MEDS: THIAMINE HCL 100 MG TABLET (FP) PO SCH (21:29)
[2020-12-29] MEDS: HYDROCHLOROTHIAZIDE 12.5 MG CAPSULE (FP) PO SCH (10:01)
[2020-12-29] MEDS: QUEtiapine FUMARATE 100 MG TABLET (FP) PO SCH ×2 (10:01→21:56)
[2020-12-29] MEDS: metoPROLOL SUCCINATE 25 MG TAB.SR.24H (FP) PO SCH (10:01)
[2020-12-29] MEDS: amLODIPine BESYLATE 10 MG TABLET (FP) PO SCH (10:01)
[2020-12-29] MEDS: PRENATAL VITAMINS W/ FOLIC ACID TABLET (FP) PO SCH (10:01)
[2020-12-29] MEDS: SERTRALINE HCL 50 MG TABLET (FP) PO SCH (10:01)
[2020-12-29] MEDS: LOSARTAN POTASSIUM 50 MG TABLET PO SCH (10:01)
[2020-12-29] MEDS: THIAMINE HCL 100 MG TABLET (FP) PO SCH (21:56)
[2020-12-29] MEDS: MELATONIN 5 MG TABLETS PO SCH (21:56)
[2020-12-30] MEDS: LOSARTAN POTASSIUM 50 MG TABLET PO SCH (09:51)
[2020-12-30] MEDS: PRENATAL VITAMINS W/ FOLIC ACID TABLET (FP) PO SCH (09:51)
[2020-12-30] MEDS: amLODIPine BESYLATE 10 MG TABLET (FP) PO SCH (09:51)
[2020-12-30] MEDS: metoPROLOL SUCCINATE 25 MG TAB.SR.24H (FP) PO SCH (09:52)
[2020-12-30] MEDS: QUEtiapine FUMARATE 100 MG TABLET (FP) PO SCH ×2 (09:52→21:32)
[2020-12-30] MEDS: SERTRALINE HCL 50 MG TABLET (FP) PO SCH (09:52)
[2020-12-30] MEDS: HYDROCHLOROTHIAZIDE 12.5 MG CAPSULE (FP) PO SCH (09:52)
[2020-12-30] MEDS: MELATONIN 5 MG TABLETS PO SCH (21:32)
[2020-12-30] MEDS: THIAMINE HCL 100 MG TABLET (FP) PO SCH (21:32)
[2020-12-31] MEDS ORDERED: QUEtiapine FUMARATE 50 MG TABLET ONE (08:38)
[2020-12-31] MEDS: PRENATAL VITAMINS W/ FOLIC ACID TABLET (FP) PO SCH (09:56)
[2020-12-31] MEDS: amLODIPine BESYLATE 10 MG TABLET (FP) PO SCH (09:56)
[2020-12-31] MEDS: metoPROLOL SUCCINATE 25 MG TAB.SR.24H (FP) PO SCH (09:57)
[2020-12-31] MEDS: QUEtiapine FUMARATE 100 MG TABLET (FP) PO SCH ×2 (09:57→21:12)
[2020-12-31] MEDS: HYDROCHLOROTHIAZIDE 12.5 MG CAPSULE (FP) PO SCH (09:57)
[2020-12-31] MEDS: SERTRALINE HCL 50 MG TABLET (FP) PO SCH (09:57)
[2020-12-31] MEDS: LOSARTAN POTASSIUM 50 MG TABLET PO SCH (09:57)
[2020-12-31] MEDS: THIAMINE HCL 100 MG TABLET (FP) PO SCH (21:10)
[2020-12-31] MEDS: MELATONIN 5 MG TABLETS PO SCH (21:10)
[2021-01-01] MEDS: PRENATAL VITAMINS W/ FOLIC ACID TABLET (FP) PO SCH (10:26)
[2021-01-01] MEDS: metoPROLOL SUCCINATE 25 MG TAB.SR.24H (FP) PO SCH (10:26)
[2021-01-01] MEDS: QUEtiapine FUMARATE 100 MG TABLET (FP) PO SCH ×2 (10:27→21:11)
[2021-01-01] MEDS: LOSARTAN POTASSIUM 50 MG TABLET PO SCH (10:27)
[2021-01-01] MEDS: SERTRALINE HCL 50 MG TABLET (FP) PO SCH (10:27)
[2021-01-01] MEDS: HYDROCHLOROTHIAZIDE 12.5 MG CAPSULE (FP) PO SCH (10:27)
[2021-01-01] MEDS: amLODIPine BESYLATE 10 MG TABLET (FP) PO SCH (10:27)
[2021-01-01] MEDS: THIAMINE HCL 100 MG TABLET (FP) PO SCH (21:11)
[2021-01-01] MEDS: MELATONIN 5 MG TABLETS PO SCH (21:11)
[2021-01-02] MEDS: LOSARTAN POTASSIUM 50 MG TABLET PO SCH (09:42)
[2021-01-02] MEDS: metoPROLOL SUCCINATE 25 MG TAB.SR.24H (FP) PO SCH (09:42)
[2021-01-02] MEDS: QUEtiapine FUMARATE 100 MG TABLET (FP) PO SCH ×2 (09:42→21:05)
[2021-01-02] MEDS: amLODIPine BESYLATE 10 MG TABLET (FP) PO SCH (09:42)
[2021-01-02] MEDS: SERTRALINE HCL 50 MG TABLET (FP) PO SCH (09:42)
[2021-01-02] MEDS: PRENATAL VITAMINS W/ FOLIC ACID TABLET (FP) PO SCH (09:42)
[2021-01-02] MEDS: HYDROCHLOROTHIAZIDE 12.5 MG CAPSULE (FP) PO SCH (09:42)
[2021-01-02] MEDS: THIAMINE HCL 100 MG TABLET (FP) PO SCH (21:06)
[2021-01-02] MEDS: MELATONIN 5 MG TABLETS PO SCH (21:06)
[2021-01-03] MEDS: PRENATAL VITAMINS W/ FOLIC ACID TABLET (FP) PO SCH (09:54)
[2021-01-03] MEDS: HYDROCHLOROTHIAZIDE 12.5 MG CAPSULE (FP) PO SCH (09:54)
[2021-01-03] MEDS: amLODIPine BESYLATE 10 MG TABLET (FP) PO SCH (09:54)
[2021-01-03] MEDS: metoPROLOL SUCCINATE 25 MG TAB.SR.24H (FP) PO SCH (09:54)
[2021-01-03] MEDS: SERTRALINE HCL 50 MG TABLET (FP) PO SCH (09:54)
[2021-01-03] MEDS: QUEtiapine FUMARATE 100 MG TABLET (FP) PO SCH ×2 (09:54→21:04)
[2021-01-03] MEDS: LOSARTAN POTASSIUM 50 MG TABLET PO SCH (09:55)
[2021-01-03] MEDS: MELATONIN 5 MG TABLETS PO SCH (21:04)
[2021-01-03] MEDS: THIAMINE HCL 100 MG TABLET (FP) PO SCH (21:04)
[2021-01-04] MEDS: HYDROCHLOROTHIAZIDE 12.5 MG CAPSULE (FP) PO SCH (09:52)
[2021-01-04] MEDS: LOSARTAN POTASSIUM 50 MG TABLET PO SCH (09:52)
[2021-01-04] MEDS: metoPROLOL SUCCINATE 25 MG TAB.SR.24H (FP) PO SCH (09:52)
[2021-01-04] MEDS: PRENATAL VITAMINS W/ FOLIC ACID TABLET (FP) PO SCH (09:52)
[2021-01-04] MEDS: SERTRALINE HCL 50 MG TABLET (FP) PO SCH (09:52)
[2021-01-04] MEDS: amLODIPine BESYLATE 10 MG TABLET (FP) PO SCH (09:52)
[2021-01-04] MEDS: QUEtiapine FUMARATE 100 MG TABLET (FP) PO SCH (09:52)
[2021-01-04] MEDS ORDERED: QUEtiapine FUMARATE 100 MG TABLET (FP) PO ONE (13:45)
[2021-01-04] MEDS: THIAMINE HCL 100 MG TABLET (FP) PO SCH (21:32)
[2021-01-04] MEDS: MELATONIN 5 MG TABLETS PO SCH (21:32)
[2021-01-04] MEDS: QUEtiapine FUMARATE 200 MG TABLET PO SCH (21:32)
[2021-01-05] MEDS: SERTRALINE HCL 50 MG TABLET (FP) PO SCH (10:04)
[2021-01-05] MEDS: metoPROLOL SUCCINATE 25 MG TAB.SR.24H (FP) PO SCH (10:04)
[2021-01-05] MEDS: amLODIPine BESYLATE 10 MG TABLET (FP) PO SCH (10:04)
[2021-01-05] MEDS: HYDROCHLOROTHIAZIDE 12.5 MG CAPSULE (FP) PO SCH (10:04)
[2021-01-05] MEDS: LOSARTAN POTASSIUM 50 MG TABLET PO SCH (10:04)
[2021-01-05] MEDS: PRENATAL VITAMINS W/ FOLIC ACID TABLET (FP) PO SCH (10:05)
[2021-01-05] MEDS: QUEtiapine FUMARATE 200 MG TABLET PO SCH ×2 (10:05→21:10)
[2021-01-05] MEDS: MELATONIN 5 MG TABLETS PO SCH (21:10)
[2021-01-05] MEDS: THIAMINE HCL 100 MG TABLET (FP) PO SCH (21:10)
[2021-01-06] MEDS: PRENATAL VITAMINS W/ FOLIC ACID TABLET (FP) PO SCH (09:55)
[2021-01-06] MEDS: SERTRALINE HCL 50 MG TABLET (FP) PO SCH (09:55)
[2021-01-06] MEDS: QUEtiapine FUMARATE 200 MG TABLET PO SCH ×2 (09:55→21:39)
[2021-01-06] MEDS: HYDROCHLOROTHIAZIDE 12.5 MG CAPSULE (FP) PO SCH (09:55)
[2021-01-06] MEDS: LOSARTAN POTASSIUM 50 MG TABLET PO SCH (09:55)
[2021-01-06] MEDS: amLODIPine BESYLATE 10 MG TABLET (FP) PO SCH (09:55)
[2021-01-06] MEDS: metoPROLOL SUCCINATE 25 MG TAB.SR.24H (FP) PO SCH (09:55)
[2021-01-06] MEDS: THIAMINE HCL 100 MG TABLET (FP) PO SCH (21:39)
[2021-01-06] MEDS: MELATONIN 5 MG TABLETS PO SCH (21:39)
[2021-01-07] MEDS: QUEtiapine FUMARATE 200 MG TABLET PO SCH ×2 (09:49→21:06)
[2021-01-07] MEDS: LOSARTAN POTASSIUM 50 MG TABLET PO SCH (09:49)
[2021-01-07] MEDS: metoPROLOL SUCCINATE 25 MG TAB.SR.24H (FP) PO SCH (09:49)
[2021-01-07] MEDS: HYDROCHLOROTHIAZIDE 12.5 MG CAPSULE (FP) PO SCH (09:49)
[2021-01-07] MEDS: PRENATAL VITAMINS W/ FOLIC ACID TABLET (FP) PO SCH (09:49)
[2021-01-07] MEDS: amLODIPine BESYLATE 10 MG TABLET (FP) PO SCH (09:49)
[2021-01-07] MEDS: SERTRALINE HCL 50 MG TABLET (FP) PO SCH (09:49)
[2021-01-07] MEDS: THIAMINE HCL 100 MG TABLET (FP) PO SCH (21:06)
[2021-01-07] MEDS: MELATONIN 5 MG TABLETS PO SCH (21:06)
[2021-01-08] MEDS: QUEtiapine FUMARATE 200 MG TABLET PO SCH ×2 (09:46→21:21)
[2021-01-08] MEDS: PRENATAL VITAMINS W/ FOLIC ACID TABLET (FP) PO SCH (09:46)
[2021-01-08] MEDS: SERTRALINE HCL 50 MG TABLET (FP) PO SCH (09:47)
[2021-01-08] MEDS: HYDROCHLOROTHIAZIDE 12.5 MG CAPSULE (FP) PO SCH (09:47)
[2021-01-08] MEDS: metoPROLOL SUCCINATE 25 MG TAB.SR.24H (FP) PO SCH (09:47)
[2021-01-08] MEDS: LOSARTAN POTASSIUM 50 MG TABLET PO SCH (09:47)
[2021-01-08] MEDS: amLODIPine BESYLATE 10 MG TABLET (FP) PO SCH (09:47)
[2021-01-08] MEDS: THIAMINE HCL 100 MG TABLET (FP) PO SCH (21:21)
[2021-01-08] MEDS: MELATONIN 5 MG TABLETS PO SCH (21:21)
[2021-01-09 06:33] VITALS: TEMP 97.8
[2021-01-09] MEDS: metoPROLOL SUCCINATE 25 MG TAB.SR.24H (FP) PO SCH (09:48)
[2021-01-09] MEDS: PRENATAL VITAMINS W/ FOLIC ACID TABLET (FP) PO SCH (09:48)
[2021-01-09] MEDS: HYDROCHLOROTHIAZIDE 12.5 MG CAPSULE (FP) PO SCH (09:48)
[2021-01-09] MEDS: QUEtiapine FUMARATE 200 MG TABLET PO SCH (09:48)
[2021-01-09] MEDS: SERTRALINE HCL 50 MG TABLET (FP) PO SCH (09:48)
[2021-01-09] MEDS: amLODIPine BESYLATE 10 MG TABLET (FP) PO SCH (09:48)
[2021-01-09] MEDS: LOSARTAN POTASSIUM 50 MG TABLET PO SCH (10:47)
[2021-01-09 10:54] VITALS: BP 142/82; PULSE 72
[2021-01-09] MEDS ORDERED: PT OWN MED DRAWER 7, Y5N ONE (15:10)
[2021-01-09] MEDS ORDERED: MASKS NR ONE (15:11)
== END 2021-01-09 15:20 | disposition home or self-care (01) | DRG 895 ==
LOC: YASAS 13:07 → Y3W 20:29
PROVIDERS: ADMIT Allergy & Immunology; ATTEND Allergy & Immunology
PROC: HZ42ZZZ Group Counseling for Substance Abuse Treatment, Cognitive-Behavioral (ICD-10-PCS; principal; 2020-12-22)
DX: F10.20 Alcohol dependence, uncomplicated (principal); F14.20 Cocaine dependence, uncomplicated; F12.20 Cannabis dependence, uncomplicated; F17.210 Nicotine dependence, cigarettes, uncomplicated; F25.9 Schizoaffective disorder, unspecified; F31.9 Bipolar disorder, unspecified; I10 Essential (primary) hypertension; R82.90 Unspecified abnormal findings in urine; Z98.890 Other specified postprocedural states
CPT/HCPCS: 36415; 80053; 81003; 85027; 86780; C9803; U0003; U0005

== ENCOUNTER 2021-01-24 10:08 | Inpatient (IN) | payer OTHER ==
[2021-01-24 10:44] VITALS: BMI 32.6
[2021-01-24] MEDS ORDERED: MAGNESIUM HYDROX 2400MG/30ML ORAL SUSPENSION 30 ML CUP PO PRN (12:24)
[2021-01-24] MEDS ORDERED: NICOTINE POLACRILEX 2 MG GUM BUC PRN (12:24)
[2021-01-24] MEDS ORDERED: METHOCARBAMOL 500 MG TABLET PO PRN (12:24)
[2021-01-24] MEDS ORDERED: ONDANSETRON *ODT* 4 MG TABLET SL PRN (12:24)
[2021-01-24] MEDS ORDERED: LORazepam 1 MG TABLET PO PRN (12:24)
[2021-01-24] MEDS ORDERED: BISMUTH SUBSALICYLATE 262 MG/15 ML BTL PO PRN (12:24)
[2021-01-24] MEDS ORDERED: MAG HYDROX/AL HYDROX/SIMETH 30 ML UNIT-DOSE CUP PO PRN (12:24)
[2021-01-24] MEDS ORDERED: MAGNESIUM CITRATE 300 ML BOTTLE PO PRN (12:24)
[2021-01-24] MEDS ORDERED: ACETAMINOPHEN 325 MG TABLET (FP) PO PRN ×2 (12:24)
[2021-01-24] MEDS ORDERED: MENTHOL/PHENOL 1 EACH UD MM PRN (12:24)
[2021-01-24] MEDS ORDERED: IBUPROFEN 400 MG TABLET (FP) PO PRN (12:24)
[2021-01-24] MEDS ORDERED: hydrOXYzine PAMOATE 25 MG CAPSULE (FP) PO PRN (13:33)
[2021-01-24] MEDS: NICOTINE 7 MG/24 HOURS TOPICAL PATCH TD SCH (13:57)
[2021-01-24] MEDS: PRENATAL VITAMINS W/ FOLIC ACID TABLET (FP) PO SCH (13:58)
[2021-01-24] MEDS: amLODIPine BESYLATE 10 MG TABLET (FP) PO SCH (13:58)
[2021-01-24] MEDS ORDERED: hydrOXYzine PAMOATE 25 MG CAPSULE (FP) PO SCH (14:00)
[2021-01-24 14:18] LABS: HIV INTERPRETATION NEGATIVE (NEGATIVE)
[2021-01-24 17:10] LABS: HEMATOCRIT 39.7 % (35.4-49); HEMOGLOBIN 13.1 GM/dL (11.7-16.9); MCH 26.7 pg (25.7-33.7); MCHC 32.9 g/dl (32.0-35.9); MEAN CELL VOLUME 81.1 fl (80-96); MEAN PLT VOLUME 7.7 fl (7.5-11.1); PLATELET COUNT 284 10^3/uL (134-434); WHITE BLOOD COUNT 6.9 K/mm3 (4.0-10.0)
[2021-01-24 17:13] LABS: BLOOD UREA NITROGEN 24.5 mg/dL (7-18); CALCIUM 9.2 mg/dL (8.5-10.1)
[2021-01-24 17:14] LABS: ALBUMIN 4.4 g/dl (3.4-5.0)
[2021-01-24 17:17] LABS: CREATININE 1.9 mg/dL (0.55-1.3)
[2021-01-24 17:19] LABS: BILIRUBIN,TOTAL 0.6 mg/dL (0.2-1); TOT PROT 8.5 g/dl (6.4-8.2)
[2021-01-24] MEDS: LORazepam 2 MG TABLET PO SCH ×2 (18:31→23:02)
[2021-01-24] MEDS: MELATONIN 5 MG TABLETS PO SCH (23:01)
[2021-01-24] MEDS: QUEtiapine FUMARATE 100 MG TABLET (FP) PO SCH (23:02)
[2021-01-24] MEDS: THIAMINE HCL 100 MG TABLET (FP) PO SCH (23:02)
[2021-01-25] MEDS: LORazepam 2 MG TABLET PO SCH ×4 (08:03→22:46)
[2021-01-25] MEDS ORDERED: PNEUMOC 13-VAL CONJ-DIP CRM/PF 0.5 ML DISP.SYRIN IM ONE (11:14)
[2021-01-25] MEDS: metoPROLOL SUCCINATE 25 MG TAB.SR.24H (FP) PO SCH (11:37)
[2021-01-25] MEDS: LOSARTAN POTASSIUM 50 MG TABLET PO SCH (11:37)
[2021-01-25] MEDS: HYDROCHLOROTHIAZIDE 12.5 MG CAPSULE (FP) PO SCH (11:37)
[2021-01-25] MEDS: amLODIPine BESYLATE 10 MG TABLET (FP) PO SCH (11:37)
[2021-01-25] MEDS ORDERED: PNEUMOCOCCAL 23 VACCINE 0.5 ML VIAL IM ONE (12:00)
[2021-01-25] MEDS: NICOTINE 7 MG/24 HOURS TOPICAL PATCH TD SCH (12:20)
[2021-01-25] MEDS: PRENATAL VITAMINS W/ FOLIC ACID TABLET (FP) PO SCH (12:20)
[2021-01-25] MEDS: SERTRALINE HCL 50 MG TABLET (FP) PO SCH (12:21)
[2021-01-25] MEDS: QUEtiapine FUMARATE 100 MG TABLET (FP) PO SCH ×2 (12:21→22:44)
[2021-01-25] MEDS: THIAMINE HCL 100 MG TABLET (FP) PO SCH (22:44)
[2021-01-25] MEDS: MELATONIN 5 MG TABLETS PO SCH (22:44)
[2021-01-26] MEDS: LORazepam 1 MG TABLET PO SCH ×4 (06:34→22:12)
[2021-01-26 09:23] LABS: BLOOD UREA NITROGEN 17.1 mg/dL (7-18)
[2021-01-26] MEDS: amLODIPine BESYLATE 10 MG TABLET (FP) PO SCH (10:33)
[2021-01-26] MEDS: QUEtiapine FUMARATE 100 MG TABLET (FP) PO SCH ×2 (10:33→22:12)
[2021-01-26] MEDS: SERTRALINE HCL 50 MG TABLET (FP) PO SCH (10:33)
[2021-01-26] MEDS: NICOTINE 7 MG/24 HOURS TOPICAL PATCH TD SCH (10:34)
[2021-01-26] MEDS: PRENATAL VITAMINS W/ FOLIC ACID TABLET (FP) PO SCH (10:34)
[2021-01-26] MEDS: LOSARTAN POTASSIUM 50 MG TABLET PO SCH (13:00)
[2021-01-26] MEDS: metoPROLOL SUCCINATE 25 MG TAB.SR.24H (FP) PO SCH (13:00)
[2021-01-26] MEDS: HYDROCHLOROTHIAZIDE 12.5 MG CAPSULE (FP) PO SCH (13:01)
[2021-01-26] MEDS: MELATONIN 5 MG TABLETS PO SCH (22:12)
[2021-01-26] MEDS: THIAMINE HCL 100 MG TABLET (FP) PO SCH (22:12)
[2021-01-27] MEDS ORDERED: LORazepam 0.5 MG TABLET PO PRN
[2021-01-27] MEDS: LORazepam 0.5 MG TABLET PO SCH ×4 (05:36→22:03)
[2021-01-27] MEDS: HYDROCHLOROTHIAZIDE 12.5 MG CAPSULE (FP) PO SCH (10:04)
[2021-01-27] MEDS: LOSARTAN POTASSIUM 50 MG TABLET PO SCH (10:04)
[2021-01-27] MEDS: SERTRALINE HCL 50 MG TABLET (FP) PO SCH (10:05)
[2021-01-27] MEDS: amLODIPine BESYLATE 10 MG TABLET (FP) PO SCH (10:05)
[2021-01-27] MEDS: PRENATAL VITAMINS W/ FOLIC ACID TABLET (FP) PO SCH (10:05)
[2021-01-27] MEDS: QUEtiapine FUMARATE 100 MG TABLET (FP) PO SCH ×2 (10:05→22:03)
[2021-01-27] MEDS: NICOTINE 7 MG/24 HOURS TOPICAL PATCH TD SCH (10:07)
[2021-01-27] MEDS: metoPROLOL SUCCINATE 25 MG TAB.SR.24H (FP) PO SCH (13:13)
[2021-01-27] MEDS: THIAMINE HCL 100 MG TABLET (FP) PO SCH (22:03)
[2021-01-27] MEDS: MELATONIN 5 MG TABLETS PO SCH (22:03)
[2021-01-28] MEDS ORDERED: LORazepam 0.5 MG TABLET PO ONE (05:00)
[2021-01-28 06:07] VITALS: BP 131/78; PULSE 58; TEMP 98.1
[2021-01-28] MEDS ORDERED: MASKS NR ONE (06:36)
== END 2021-01-28 08:02 | disposition other institution (70) | DRG 897 ==
LOC: YASAS 10:08 → Y3N 11:15 → Y6N 01-25 14:57
PROVIDERS: ADMIT Allergy & Immunology; ATTEND Allergy & Immunology
PROC: HZ2ZZZZ Detoxification Services for Substance Abuse Treatment (ICD-10-PCS; principal; 2021-01-24)
DX: F10.230 Alcohol dependence with withdrawal, uncomplicated (principal); F14.20 Cocaine dependence, uncomplicated; F12.20 Cannabis dependence, uncomplicated; F16.10 Hallucinogen abuse, uncomplicated; F17.210 Nicotine dependence, cigarettes, uncomplicated; F31.9 Bipolar disorder, unspecified; F25.9 Schizoaffective disorder, unspecified; I10 Essential (primary) hypertension; R76.11 Nonspecific reaction to tuberculin skin test without active tuberculosis; Z56.0 Unemployment, unspecified; Z59.0 Homelessness
CPT/HCPCS: 36415; 80053; 82540; 82565; 84520; 85027; 86780; 87389; C9803; U0003; U0005

== ENCOUNTER 2021-10-19 12:53 | Inpatient (IN) | payer OTHER ==
[2021-10-19] MEDS ORDERED: MAGNESIUM HYDROX 2400MG/30ML ORAL SUSPENSION 30 ML CUP PO PRN (15:05)
[2021-10-19] MEDS ORDERED: DICYCLOMINE HCL 10 MG CAPSULE PO PRN (15:05)
[2021-10-19] MEDS ORDERED: ACETAMINOPHEN 325 MG TABLET (FP) PO PRN ×2 (15:05)
[2021-10-19] MEDS ORDERED: LOPERAMIDE HCL 2 MG CAPSULE PO PRN (15:05)
[2021-10-19] MEDS ORDERED: IBUPROFEN 400 MG TABLET (FP) PO PRN (15:05)
[2021-10-19] MEDS ORDERED: MAGNESIUM CITRATE 300 ML BOTTLE PO PRN (15:05)
[2021-10-19] MEDS ORDERED: MAG HYDROX/AL HYDROX/SIMETH 30 ML UNIT-DOSE CUP PO PRN (15:05)
[2021-10-19] MEDS ORDERED: MENTHOL/PHENOL 1 EACH UD MM PRN (15:05)
[2021-10-19] MEDS ORDERED: BISMUTH SUBSALICYLATE 524 MG/30 ML PO PRN (15:05)
[2021-10-19] MEDS ORDERED: ONDANSETRON *ODT* 4 MG TABLET SL PRN (15:05)
[2021-10-19 15:44] VITALS: BMI 34.8
[2021-10-19] MEDS: METHOCARBAMOL 500 MG TABLET PO PRN (17:33)
[2021-10-19] MEDS: hydrOXYzine PAMOATE 25 MG CAPSULE (FP) PO PRN (17:33)
[2021-10-19] MEDS: THIAMINE HCL 100 MG TABLET (FP) PO SCH (22:38)
[2021-10-20] MEDS ORDERED: chlordiazePOXIDE HCL 25 MG CAPSULE PO PRN (09:58)
[2021-10-20] MEDS: amLODIPine BESYLATE 10 MG TABLET (FP) PO SCH (10:20)
[2021-10-20] MEDS: LOSARTAN POTASSIUM 50 MG TABLET PO SCH (10:20)
[2021-10-20] MEDS: PRENATAL VITAMINS W/ FOLIC ACID TABLET (FP) PO SCH (10:20)
[2021-10-20] MEDS: chlordiazePOXIDE HCL 25 MG CAPSULE PO SCH ×3 (10:23→22:41)
[2021-10-20] MEDS: metoPROLOL SUCCINATE 25 MG TAB.SR.24H (FP) PO SCH (11:07)
[2021-10-20] MEDS: METHOCARBAMOL 500 MG TABLET PO PRN (22:40)
[2021-10-20] MEDS: THIAMINE HCL 100 MG TABLET (FP) PO SCH (22:41)
[2021-10-21] MEDS: chlordiazePOXIDE HCL 10 MG CAPSULE PO SCH ×4 (06:00→22:15)
[2021-10-21] MEDS: LOSARTAN POTASSIUM 50 MG TABLET PO SCH (10:25)
[2021-10-21] MEDS: amLODIPine BESYLATE 10 MG TABLET (FP) PO SCH (10:25)
[2021-10-21] MEDS: metoPROLOL SUCCINATE 25 MG TAB.SR.24H (FP) PO SCH (10:27)
[2021-10-21] MEDS: PRENATAL VITAMINS W/ FOLIC ACID TABLET (FP) PO SCH (10:27)
[2021-10-21 14:44] LABS: HEMATOCRIT 40.9 % (35.4-49); HEMOGLOBIN 13.5 GM/dL (11.7-16.9); MCH 27.2 pg (25.7-33.7); MEAN CELL VOLUME 82.4 fl (80-96); PLATELET COUNT 279 10^3/uL (134-434); RBC 4.97 M/mm3 (4.00-5.60); RDW 14.9 % (11.9-15.9); WHITE BLOOD COUNT 3.8 K/mm3 (4.0-10.0)
[2021-10-21 14:58] LABS: BLOOD UREA NITROGEN 11.4 mg/dL (7-18); CALCIUM 8.8 mg/dL (8.5-10.1)
[2021-10-21 14:59] LABS: ALBUMIN 3.2 g/dl (3.4-5.0)
[2021-10-21 15:03] LABS: BILIRUBIN,TOTAL 0.5 mg/dL (0.2-1); TOT PROT 6.9 g/dl (6.4-8.2)
[2021-10-21] MEDS: MELATONIN 5 MG TABLETS PO PRN (22:16)
[2021-10-21] MEDS: THIAMINE HCL 100 MG TABLET (FP) PO SCH (22:16)
[2021-10-22] MEDS: chlordiazePOXIDE HCL 10 MG CAPSULE PO SCH ×2 (06:06→17:38)
[2021-10-22] MEDS: LOSARTAN POTASSIUM 50 MG TABLET PO SCH (09:21)
[2021-10-22] MEDS: PRENATAL VITAMINS W/ FOLIC ACID TABLET (FP) PO SCH (09:21)
[2021-10-22] MEDS: amLODIPine BESYLATE 10 MG TABLET (FP) PO SCH (09:21)
[2021-10-22] MEDS: metoPROLOL SUCCINATE 25 MG TAB.SR.24H (FP) PO SCH (09:21)
[2021-10-22 16:09] LABS: SARS-CoV-2 NAA Not Detected (Not Detected)
[2021-10-22] MEDS: hydrOXYzine PAMOATE 25 MG CAPSULE (FP) PO PRN (17:38)
[2021-10-22] MEDS: MELATONIN 5 MG TABLETS PO PRN (22:00)
[2021-10-22] MEDS: THIAMINE HCL 100 MG TABLET (FP) PO SCH (22:00)
[2021-10-23] MEDS ORDERED: chlordiazePOXIDE HCL 10 MG CAPSULE PO PRN
[2021-10-23] MEDS ORDERED: chlordiazePOXIDE HCL 10 MG CAPSULE PO ONE (05:00)
[2021-10-23 06:07] VITALS: TEMP 97.5
[2021-10-23 09:23] VITALS: BP 138/94; PULSE 62
[2021-10-23] MEDS: PRENATAL VITAMINS W/ FOLIC ACID TABLET (FP) PO SCH (10:31)
[2021-10-23] MEDS: LOSARTAN POTASSIUM 50 MG TABLET PO SCH (10:31)
[2021-10-23] MEDS: amLODIPine BESYLATE 10 MG TABLET (FP) PO SCH (10:31)
[2021-10-23] MEDS: metoPROLOL SUCCINATE 25 MG TAB.SR.24H (FP) PO SCH (11:38)
== END 2021-10-23 11:41 | disposition home or self-care (01) | DRG 897 ==
LOC: YASAS 12:53 → Y3N 16:19
PROVIDERS: ADMIT Allergy & Immunology; ATTEND Allergy & Immunology
PROC: HZ2ZZZZ Detoxification Services for Substance Abuse Treatment (ICD-10-PCS; principal; 2021-10-19)
DX: F10.230 Alcohol dependence with withdrawal, uncomplicated (principal); F14.20 Cocaine dependence, uncomplicated; F19.282 Other psychoactive substance dependence with psychoactive substance-induced sleep disorder; F12.20 Cannabis dependence, uncomplicated; F16.10 Hallucinogen abuse, uncomplicated; F17.210 Nicotine dependence, cigarettes, uncomplicated; F25.9 Schizoaffective disorder, unspecified; I10 Essential (primary) hypertension; Z86.11 Personal history of tuberculosis; Z91.51 Personal history of suicidal behavior; Z56.0 Unemployment, unspecified; Z59.01 Sheltered homelessness
CPT/HCPCS: 36415; 80053; 85027; 86593; 86780; C9803-CS; U0003; U0005

== ENCOUNTER 2022-02-01 09:05 | Inpatient (IN) | payer OTHER ==
[2022-02-01 10:42] VITALS: BMI 32.1
[2022-02-01] MEDS ORDERED: chlordiazePOXIDE HCL 25 MG CAPSULE PO PRN (11:17)
[2022-02-01] MEDS ORDERED: DICYCLOMINE HCL 10 MG CAPSULE PO PRN (11:43)
[2022-02-01] MEDS ORDERED: METHOCARBAMOL 500 MG TABLET PO PRN (11:43)
[2022-02-01] MEDS ORDERED: BENZOCAINE/MENTHOL (CHLORASEPTIC ) LOZENGE MM PRN (11:43)
[2022-02-01] MEDS ORDERED: NICOTINE 10 MG CARTRIDGE (INHALER) IH PRN (11:43)
[2022-02-01] MEDS ORDERED: MAGNESIUM HYDROX 2400MG/30ML ORAL SUSPENSION 30 ML CUP PO PRN (11:43)
[2022-02-01] MEDS ORDERED: MAG HYDROX/AL HYDROX/SIMETH 30 ML UNIT-DOSE CUP PO PRN (11:43)
[2022-02-01] MEDS ORDERED: ONDANSETRON *ODT* 4 MG TABLET SL PRN (11:43)
[2022-02-01] MEDS ORDERED: LOPERAMIDE HCL 2 MG CAPSULE PO PRN (11:43)
[2022-02-01] MEDS ORDERED: BISMUTH SUBSALICYLATE 524 MG/30 ML PO PRN (11:43)
[2022-02-01] MEDS ORDERED: MAGNESIUM CITRATE 300 ML BOTTLE PO PRN (11:43)
[2022-02-01] MEDS ORDERED: ACETAMINOPHEN 325 MG TABLET (FP) PO PRN ×2 (11:43)
[2022-02-01] MEDS ORDERED: IBUPROFEN 600 MG TABLET (FP) PO PRN (11:43)
[2022-02-01] MEDS ORDERED: IBUPROFEN 400 MG TABLET (FP) PO PRN (11:43)
[2022-02-01] MEDS: hydrOXYzine PAMOATE 25 MG CAPSULE (FP) PO SCH ×3 (14:49→23:27)
[2022-02-01] MEDS: chlordiazePOXIDE HCL 25 MG CAPSULE PO SCH ×2 (17:44→23:26)
[2022-02-01] MEDS: THIAMINE HCL 100 MG TABLET (FP) PO SCH (23:27)
[2022-02-01] MEDS: MELATONIN 5 MG TABLETS PO SCH (23:27)
[2022-02-02] MEDS: chlordiazePOXIDE HCL 25 MG CAPSULE PO SCH ×4 (06:04→23:10)
[2022-02-02] MEDS: hydrOXYzine PAMOATE 25 MG CAPSULE (FP) PO SCH ×5 (06:04→23:11)
[2022-02-02] MEDS ORDERED: HYDROCHLOROTHIAZIDE 12.5 MG CAPSULE (FP) PO SCH (10:00)
[2022-02-02] MEDS ORDERED: LOSARTAN POTASSIUM 50 MG TABLET PO SCH (10:00)
[2022-02-02] MEDS ORDERED: metoPROLOL SUCCINATE 25 MG TAB.SR.24H (FP) PO SCH (10:00)
[2022-02-02] MEDS ORDERED: PRENATAL VITAMINS W/ FOLIC ACID TABLET (FP) PO SCH (10:00)
[2022-02-02] MEDS ORDERED: amLODIPine BESYLATE 10 MG TABLET (FP) PO SCH (10:00)
[2022-02-02 11:22] LABS: HEMATOCRIT 40.8 % (35.4-49); HEMOGLOBIN 13.3 GM/dL (11.7-16.9); MCH 26.5 pg (25.7-33.7); MCHC 32.6 g/dl (32.0-35.9); MEAN CELL VOLUME 81.4 fl (80-96); MEAN PLT VOLUME 7.7 fl (7.5-11.1); PLATELET COUNT 308 10^3/uL (134-434); RBC 5.01 M/mm3 (4.00-5.60); RDW 15.2 % (11.9-15.9); WHITE BLOOD COUNT 4.7 K/mm3 (4.0-10.0)
[2022-02-02 12:21] LABS: ALBUMIN 3.5 g/dl (3.4-5.0)
[2022-02-02 12:22] LABS: BLOOD UREA NITROGEN 21.5 mg/dL (7-18); CREATININE 0.9 mg/dL (0.55-1.3)
[2022-02-02 12:23] LABS: BILIRUBIN,TOTAL 0.4 mg/dL (0.2-1)
[2022-02-02] MEDS: MELATONIN 5 MG TABLETS PO SCH (23:10)
[2022-02-02] MEDS: THIAMINE HCL 100 MG TABLET (FP) PO SCH (23:11)
[2022-02-03] MEDS ORDERED: chlordiazePOXIDE HCL 25 MG CAPSULE PO SCH (05:00)
[2022-02-03] MEDS: hydrOXYzine PAMOATE 25 MG CAPSULE (FP) PO SCH (05:38)
[2022-02-03 09:21] VITALS: BP 136/88; PULSE 62; TEMP 97.6
[2022-02-04] MEDS ORDERED: chlordiazePOXIDE HCL 10 MG CAPSULE PO PRN
[2022-02-04] MEDS ORDERED: chlordiazePOXIDE HCL 10 MG CAPSULE PO SCH (05:00)
[2022-02-05] MEDS ORDERED: chlordiazePOXIDE HCL 10 MG CAPSULE PO SCH (05:00)
[2022-02-06] MEDS ORDERED: chlordiazePOXIDE HCL 10 MG CAPSULE PO ONE (05:00)
== END 2022-02-03 10:36 | disposition home or self-care (01) | DRG 897 ==
LOC: YASAS 09:05 → SUATTDRO 09:05 → Y6N 14:12
PROVIDERS: ADMIT Allergy & Immunology; ATTEND Surgery
PROC: HZ2ZZZZ Detoxification Services for Substance Abuse Treatment (ICD-10-PCS; principal; 2022-02-01)
DX: F10.230 Alcohol dependence with withdrawal, uncomplicated (principal); F14.20 Cocaine dependence, uncomplicated; F12.20 Cannabis dependence, uncomplicated; F17.210 Nicotine dependence, cigarettes, uncomplicated; F25.9 Schizoaffective disorder, unspecified; F31.9 Bipolar disorder, unspecified; I10 Essential (primary) hypertension; R79.89 Other specified abnormal findings of blood chemistry; R76.11 Nonspecific reaction to tuberculin skin test without active tuberculosis
CPT/HCPCS: 36415; 80053; 85027; 86593; 86780; C9803-CS; U0003; U0005

== ENCOUNTER 2022-09-06 09:05 | Inpatient (IN) | payer OTHER ==
[2022-09-06 09:40] VITALS: BMI 31.8
[2022-09-06] MEDS ORDERED: DICYCLOMINE HCL 10 MG CAPSULE PO PRN (10:28)
[2022-09-06] MEDS ORDERED: MAGNESIUM HYDROX 2400MG/30ML ORAL SUSPENSION 30 ML CUP PO PRN (10:28)
[2022-09-06] MEDS ORDERED: BISMUTH SUBSALICYLATE 524 MG/30 ML PO PRN (10:28)
[2022-09-06] MEDS ORDERED: NICOTINE 10 MG CARTRIDGE (INHALER) IH PRN (10:28)
[2022-09-06] MEDS ORDERED: ACETAMINOPHEN 325 MG TABLET (FP) PO PRN ×2 (10:28)
[2022-09-06] MEDS ORDERED: MAG HYDROX/AL HYDROX/SIMETH 30 ML UNIT-DOSE CUP PO PRN (10:28)
[2022-09-06] MEDS ORDERED: LORazepam 2 MG TABLET PO ONE (10:28)
[2022-09-06] MEDS ORDERED: BENZOCAINE/MENTHOL (CHLORASEPTIC ) LOZENGE MM PRN (10:28)
[2022-09-06] MEDS ORDERED: POLYETHYLENE GLYCOL (HEALTHYLAX) 3350 17 GM PACKET PO PRN (10:28)
[2022-09-06] MEDS ORDERED: IBUPROFEN 600 MG TABLET (FP) PO PRN (10:28)
[2022-09-06] MEDS ORDERED: NALOXONE HCL (KLOXXADO) 8 MG SPRAY NS PRN (10:28)
[2022-09-06] MEDS ORDERED: IBUPROFEN 400 MG TABLET (FP) PO PRN (10:28)
[2022-09-06] MEDS ORDERED: LOPERAMIDE HCL 2 MG CAPSULE PO PRN (10:28)
[2022-09-06] MEDS ORDERED: ONDANSETRON *ODT* 4 MG TABLET SL PRN (10:28)
[2022-09-06] MEDS ORDERED: METHOCARBAMOL 500 MG TABLET PO PRN (10:28)
[2022-09-06] MEDS ORDERED: LORazepam 1 MG TABLET PO PRN (10:28)
[2022-09-06] MEDS: LORazepam 2 MG TABLET PO SCH ×2 (17:48→22:20)
[2022-09-06] MEDS: THIAMINE HCL 100 MG TABLET (FP) PO SCH (22:20)
[2022-09-06] MEDS: MELATONIN 5 MG TABLETS PO SCH (22:20)
[2022-09-07] MEDS: LORazepam 2 MG TABLET PO SCH ×4 (05:32→22:15)
[2022-09-07] MEDS: PRENATAL VITAMINS W/ FOLIC ACID TABLET (FP) PO SCH (10:28)
[2022-09-07] MEDS: HYDROCHLOROTHIAZIDE 12.5 MG CAPSULE (FP) PO SCH (10:28)
[2022-09-07] MEDS: LOSARTAN POTASSIUM 50 MG TABLET PO SCH (10:29)
[2022-09-07] MEDS: amLODIPine BESYLATE 10 MG TABLET (FP) PO SCH (10:29)
[2022-09-07] MEDS: SERTRALINE HCL 50 MG TABLET (FP) PO SCH (10:30)
[2022-09-07] MEDS: QUEtiapine FUMARATE 100 MG TABLET (FP) PO SCH ×2 (10:30→22:15)
[2022-09-07 11:55] LABS: HEMATOCRIT 39.8 % (35.4-49); HEMOGLOBIN 13.5 GM/dL (11.7-16.9); MCH 27.5 pg (25.7-33.7); MEAN CELL VOLUME 80.9 fl (80-96); MEAN PLT VOLUME 7.6 fl (7.5-11.1); PLATELET COUNT 349 10^3/uL (134-434); RBC 4.92 M/mm3 (4.00-5.60); RDW 15.3 % (11.9-15.9); WHITE BLOOD COUNT 4.8 K/mm3 (4.0-10.0)
[2022-09-07 12:15] LABS: ALBUMIN 3.6 g/dl (3.4-5.0); BLOOD UREA NITROGEN 14.1 mg/dL (7-18)
[2022-09-07 12:19] LABS: BILIRUBIN,TOTAL 0.6 mg/dL (0.2-1)
[2022-09-07 12:20] LABS: TOT PROT 7.2 g/dl (6.4-8.2)
[2022-09-07 12:55] LABS: HIV INTERPRETATION NEGATIVE (NEGATIVE)
[2022-09-07] MEDS: MELATONIN 5 MG TABLETS PO SCH (22:15)
[2022-09-07] MEDS: THIAMINE HCL 100 MG TABLET (FP) PO SCH (22:15)
[2022-09-08] MEDS: LORazepam 1 MG TABLET PO SCH ×4 (05:32→22:11)
[2022-09-08] MEDS: amLODIPine BESYLATE 10 MG TABLET (FP) PO SCH (10:18)
[2022-09-08] MEDS: SERTRALINE HCL 50 MG TABLET (FP) PO SCH (10:18)
[2022-09-08] MEDS: QUEtiapine FUMARATE 100 MG TABLET (FP) PO SCH ×2 (10:19→22:10)
[2022-09-08] MEDS: PRENATAL VITAMINS W/ FOLIC ACID TABLET (FP) PO SCH (10:19)
[2022-09-08] MEDS: LOSARTAN POTASSIUM 50 MG TABLET PO SCH (10:19)
[2022-09-08] MEDS: HYDROCHLOROTHIAZIDE 12.5 MG CAPSULE (FP) PO SCH (10:19)
[2022-09-08] MEDS ORDERED: LISINOPRIL 5 MG TABLET PO ONE (21:13)
[2022-09-08] MEDS: THIAMINE HCL 100 MG TABLET (FP) PO SCH (22:10)
[2022-09-08] MEDS: MELATONIN 5 MG TABLETS PO SCH (22:10)
[2022-09-09] MEDS ORDERED: LORazepam 0.5 MG TABLET PO PRN
[2022-09-09] MEDS: LORazepam 0.5 MG TABLET PO SCH ×3 (05:25→10:31)
[2022-09-09 09:04] VITALS: BP 147/82; PULSE 67; RESP 18; TEMP 96.9
[2022-09-09] MEDS: QUEtiapine FUMARATE 100 MG TABLET (FP) PO SCH (09:07)
[2022-09-09] MEDS: PRENATAL VITAMINS W/ FOLIC ACID TABLET (FP) PO SCH (09:07)
[2022-09-09] MEDS: LOSARTAN POTASSIUM 50 MG TABLET PO SCH (09:07)
[2022-09-09] MEDS: SERTRALINE HCL 50 MG TABLET (FP) PO SCH (09:07)
[2022-09-09] MEDS: HYDROCHLOROTHIAZIDE 12.5 MG CAPSULE (FP) PO SCH (09:07)
[2022-09-09] MEDS: amLODIPine BESYLATE 10 MG TABLET (FP) PO SCH (09:07)
[2022-09-10] MEDS ORDERED: LORazepam 0.5 MG TABLET PO ONE (05:00)
== END 2022-09-09 09:35 | disposition home or self-care (01) | DRG 897 ==
LOC: YASAS 09:05 → Y3N 14:44
PROVIDERS: ADMIT Allergy & Immunology; ATTEND Surgery
PROC: HZ2ZZZZ Detoxification Services for Substance Abuse Treatment (ICD-10-PCS; principal; 2022-09-06)
DX: F10.230 Alcohol dependence with withdrawal, uncomplicated (principal); F14.20 Cocaine dependence, uncomplicated; F19.282 Other psychoactive substance dependence with psychoactive substance-induced sleep disorder; F12.20 Cannabis dependence, uncomplicated; F17.210 Nicotine dependence, cigarettes, uncomplicated; F25.9 Schizoaffective disorder, unspecified; F31.9 Bipolar disorder, unspecified; I10 Essential (primary) hypertension; R73.9 Hyperglycemia, unspecified; Z86.19 Personal history of other infectious and parasitic diseases; Z88.8 Allergy status to other drugs, medicaments and biological substances
CPT/HCPCS: 36415; 80053; 83036; 85027; 86593; 86780; 87389; C9803-CS; U0003; U0005

== ENCOUNTER 2022-09-27 11:13 | Inpatient (IN) | payer OTHER ==
[2022-09-27 11:29] VITALS: BMI 26.4
[2022-09-27] MEDS ORDERED: IBUPROFEN 400 MG TABLET (FP) PO PRN (14:16)
[2022-09-27] MEDS ORDERED: ACETAMINOPHEN 325 MG TABLET (FP) PO PRN ×2 (14:16)
[2022-09-27] MEDS ORDERED: NALOXONE HCL (KLOXXADO) 8 MG SPRAY NS PRN (14:16)
[2022-09-27] MEDS ORDERED: POLYETHYLENE GLYCOL (HEALTHYLAX) 3350 17 GM PACKET PO PRN (14:16)
[2022-09-27] MEDS ORDERED: MAG HYDROX/AL HYDROX/SIMETH 30 ML UNIT-DOSE CUP PO PRN (14:16)
[2022-09-27] MEDS ORDERED: BISMUTH SUBSALICYLATE 524 MG/30 ML PO PRN (14:16)
[2022-09-27] MEDS ORDERED: hydrOXYzine PAMOATE 25 MG CAPSULE (FP) PO PRN (14:16)
[2022-09-27] MEDS ORDERED: METHOCARBAMOL 500 MG TABLET PO PRN (14:16)
[2022-09-27] MEDS ORDERED: chlordiazePOXIDE HCL 25 MG CAPSULE PO PRN (14:16)
[2022-09-27] MEDS ORDERED: MAGNESIUM HYDROX 2400MG/30ML ORAL SUSPENSION 30 ML CUP PO PRN (14:16)
[2022-09-27] MEDS ORDERED: IBUPROFEN 600 MG TABLET (FP) PO PRN (14:16)
[2022-09-27] MEDS ORDERED: NICOTINE 10 MG CARTRIDGE (INHALER) IH PRN (14:16)
[2022-09-27] MEDS ORDERED: DICYCLOMINE HCL 10 MG CAPSULE PO PRN (14:16)
[2022-09-27] MEDS ORDERED: LOPERAMIDE HCL 2 MG CAPSULE PO PRN (14:16)
[2022-09-27] MEDS ORDERED: ONDANSETRON *ODT* 4 MG TABLET SL PRN (14:16)
[2022-09-27] MEDS ORDERED: BENZOCAINE/MENTHOL (CHLORASEPTIC ) LOZENGE MM PRN (14:16)
[2022-09-27] MEDS ORDERED: chlordiazePOXIDE HCL 25 MG CAPSULE ONE (16:56)
[2022-09-27] MEDS: chlordiazePOXIDE HCL 25 MG CAPSULE PO SCH ×2 (16:58→22:44)
[2022-09-27] MEDS: MELATONIN 5 MG TABLETS PO SCH (22:44)
[2022-09-27] MEDS: THIAMINE HCL 100 MG TABLET (FP) PO SCH (22:44)
[2022-09-28] MEDS: chlordiazePOXIDE HCL 25 MG CAPSULE PO SCH ×4 (06:15→23:03)
[2022-09-28 09:23] LABS: CALCIUM 8.7 mg/dL (8.5-10.1)
[2022-09-28 09:24] LABS: ALBUMIN 3.4 g/dl (3.4-5.0); BLOOD UREA NITROGEN 13.7 mg/dL (7-18)
[2022-09-28 09:27] LABS: CREATININE 0.9 mg/dL (0.55-1.3)
[2022-09-28 09:28] LABS: BILIRUBIN,TOTAL 0.3 mg/dL (0.2-1); TOT PROT 6.8 g/dl (6.4-8.2)
[2022-09-28 09:44] LABS: HEMATOCRIT 38.7 % (35.4-49); HEMOGLOBIN 12.8 GM/dL (11.7-16.9); MCH 26.9 pg (25.7-33.7); MCHC 33.2 g/dl (32.0-35.9); MEAN CELL VOLUME 81.1 fl (80-96); MEAN PLT VOLUME 7.8 fl (7.5-11.1); PLATELET COUNT 304 10^3/uL (134-434); RBC 4.77 M/mm3 (4.00-5.60)
[2022-09-28] MEDS: LOSARTAN POTASSIUM 50 MG TABLET PO SCH (10:35)
[2022-09-28] MEDS: PRENATAL VITAMINS W/ FOLIC ACID TABLET (FP) PO SCH (10:35)
[2022-09-28] MEDS: amLODIPine BESYLATE 10 MG TABLET (FP) PO SCH (10:35)
[2022-09-28] MEDS: HYDROCHLOROTHIAZIDE 12.5 MG CAPSULE (FP) PO SCH (10:36)
[2022-09-28] MEDS: SERTRALINE HCL 50 MG TABLET (FP) PO SCH (10:38)
[2022-09-28] MEDS: QUEtiapine FUMARATE 100 MG TABLET (FP) PO SCH ×2 (10:38→23:01)
[2022-09-28] MEDS: THIAMINE HCL 100 MG TABLET (FP) PO SCH (23:01)
[2022-09-28] MEDS: MELATONIN 5 MG TABLETS PO SCH (23:44)
[2022-09-29] MEDS: chlordiazePOXIDE HCL 25 MG CAPSULE PO SCH ×4 (05:52→22:47)
[2022-09-29] MEDS: SERTRALINE HCL 50 MG TABLET (FP) PO SCH (10:19)
[2022-09-29] MEDS: PRENATAL VITAMINS W/ FOLIC ACID TABLET (FP) PO SCH (10:19)
[2022-09-29] MEDS: LOSARTAN POTASSIUM 50 MG TABLET PO SCH (10:19)
[2022-09-29] MEDS: HYDROCHLOROTHIAZIDE 12.5 MG CAPSULE (FP) PO SCH (10:20)
[2022-09-29] MEDS: amLODIPine BESYLATE 10 MG TABLET (FP) PO SCH (10:20)
[2022-09-29] MEDS: QUEtiapine FUMARATE 100 MG TABLET (FP) PO SCH ×2 (10:20→22:46)
[2022-09-29] MEDS: THIAMINE HCL 100 MG TABLET (FP) PO SCH (22:46)
[2022-09-29] MEDS: MELATONIN 5 MG TABLETS PO SCH (22:46)
[2022-09-30] MEDS ORDERED: chlordiazePOXIDE HCL 10 MG CAPSULE PO PRN
[2022-09-30] MEDS: chlordiazePOXIDE HCL 10 MG CAPSULE PO SCH ×4 (05:53→22:32)
[2022-09-30] MEDS: SERTRALINE HCL 50 MG TABLET (FP) PO SCH (10:49)
[2022-09-30] MEDS: QUEtiapine FUMARATE 100 MG TABLET (FP) PO SCH ×2 (10:49→22:31)
[2022-09-30] MEDS: amLODIPine BESYLATE 10 MG TABLET (FP) PO SCH (10:49)
[2022-09-30] MEDS: PRENATAL VITAMINS W/ FOLIC ACID TABLET (FP) PO SCH (10:49)
[2022-09-30] MEDS: HYDROCHLOROTHIAZIDE 12.5 MG CAPSULE (FP) PO SCH (10:49)
[2022-09-30] MEDS: LOSARTAN POTASSIUM 50 MG TABLET PO SCH (10:49)
[2022-09-30] MEDS: THIAMINE HCL 100 MG TABLET (FP) PO SCH (22:31)
[2022-09-30] MEDS: MELATONIN 5 MG TABLETS PO SCH (22:31)
[2022-10-01] MEDS: chlordiazePOXIDE HCL 10 MG CAPSULE PO SCH ×2 (05:51→18:04)
[2022-10-01] MEDS: QUEtiapine FUMARATE 100 MG TABLET (FP) PO SCH ×2 (10:05→23:04)
[2022-10-01] MEDS: PRENATAL VITAMINS W/ FOLIC ACID TABLET (FP) PO SCH (10:05)
[2022-10-01] MEDS: SERTRALINE HCL 50 MG TABLET (FP) PO SCH (10:05)
[2022-10-01] MEDS: HYDROCHLOROTHIAZIDE 12.5 MG CAPSULE (FP) PO SCH (10:06)
[2022-10-01] MEDS: amLODIPine BESYLATE 10 MG TABLET (FP) PO SCH (10:06)
[2022-10-01] MEDS: LOSARTAN POTASSIUM 50 MG TABLET PO SCH (10:06)
[2022-10-01] MEDS: THIAMINE HCL 100 MG TABLET (FP) PO SCH (23:04)
[2022-10-01] MEDS: MELATONIN 5 MG TABLETS PO SCH (23:04)
[2022-10-02] MEDS ORDERED: chlordiazePOXIDE HCL 10 MG CAPSULE PO ONE (05:00)
[2022-10-02] MEDS: QUEtiapine FUMARATE 100 MG TABLET (FP) PO SCH ×2 (10:03→21:06)
[2022-10-02] MEDS: HYDROCHLOROTHIAZIDE 12.5 MG CAPSULE (FP) PO SCH (10:03)
[2022-10-02] MEDS: LOSARTAN POTASSIUM 50 MG TABLET PO SCH (10:03)
[2022-10-02] MEDS: SERTRALINE HCL 50 MG TABLET (FP) PO SCH (10:03)
[2022-10-02] MEDS: amLODIPine BESYLATE 10 MG TABLET (FP) PO SCH (10:03)
[2022-10-02] MEDS: PRENATAL VITAMINS W/ FOLIC ACID TABLET (FP) PO SCH (10:04)
[2022-10-02] MEDS: THIAMINE HCL 100 MG TABLET (FP) PO SCH (21:06)
[2022-10-02] MEDS: MELATONIN 5 MG TABLETS PO SCH (21:06)
[2022-10-03] MEDS: LOSARTAN POTASSIUM 50 MG TABLET PO SCH (09:40)
[2022-10-03] MEDS: SERTRALINE HCL 50 MG TABLET (FP) PO SCH (09:40)
[2022-10-03] MEDS: QUEtiapine FUMARATE 100 MG TABLET (FP) PO SCH ×2 (09:40→21:32)
[2022-10-03] MEDS: amLODIPine BESYLATE 10 MG TABLET (FP) PO SCH (09:40)
[2022-10-03] MEDS: HYDROCHLOROTHIAZIDE 12.5 MG CAPSULE (FP) PO SCH (09:40)
[2022-10-03] MEDS: PRENATAL VITAMINS W/ FOLIC ACID TABLET (FP) PO SCH (09:41)
[2022-10-03 14:38] LABS: HIV INTERPRETATION NEGATIVE (NEGATIVE)
[2022-10-03] MEDS: THIAMINE HCL 100 MG TABLET (FP) PO SCH (21:31)
[2022-10-03] MEDS: MELATONIN 5 MG TABLETS PO SCH (21:31)
[2022-10-04] MEDS: PRENATAL VITAMINS W/ FOLIC ACID TABLET (FP) PO SCH (10:03)
[2022-10-04] MEDS: HYDROCHLOROTHIAZIDE 12.5 MG CAPSULE (FP) PO SCH (10:03)
[2022-10-04] MEDS: SERTRALINE HCL 50 MG TABLET (FP) PO SCH (10:04)
[2022-10-04] MEDS: amLODIPine BESYLATE 10 MG TABLET (FP) PO SCH (10:04)
[2022-10-04] MEDS: LOSARTAN POTASSIUM 50 MG TABLET PO SCH (10:04)
[2022-10-04] MEDS: QUEtiapine FUMARATE 100 MG TABLET (FP) PO SCH ×2 (10:04→21:16)
[2022-10-04] MEDS: THIAMINE HCL 100 MG TABLET (FP) PO SCH (21:15)
[2022-10-04] MEDS: MELATONIN 5 MG TABLETS PO SCH (21:15)
[2022-10-05] MEDS: PRENATAL VITAMINS W/ FOLIC ACID TABLET (FP) PO SCH (10:26)
[2022-10-05] MEDS: amLODIPine BESYLATE 10 MG TABLET (FP) PO SCH (10:26)
[2022-10-05] MEDS: SERTRALINE HCL 50 MG TABLET (FP) PO SCH (10:27)
[2022-10-05] MEDS: QUEtiapine FUMARATE 100 MG TABLET (FP) PO SCH ×2 (10:27→21:04)
[2022-10-05] MEDS: LOSARTAN POTASSIUM 50 MG TABLET PO SCH (10:27)
[2022-10-05] MEDS: HYDROCHLOROTHIAZIDE 12.5 MG CAPSULE (FP) PO SCH (10:27)
[2022-10-05] MEDS: THIAMINE HCL 100 MG TABLET (FP) PO SCH (21:04)
[2022-10-05] MEDS: MELATONIN 5 MG TABLETS PO SCH (21:04)
[2022-10-06] MEDS: QUEtiapine FUMARATE 100 MG TABLET (FP) PO SCH ×2 (09:48→21:04)
[2022-10-06] MEDS: PRENATAL VITAMINS W/ FOLIC ACID TABLET (FP) PO SCH (09:48)
[2022-10-06] MEDS: HYDROCHLOROTHIAZIDE 12.5 MG CAPSULE (FP) PO SCH (09:48)
[2022-10-06] MEDS: SERTRALINE HCL 50 MG TABLET (FP) PO SCH (09:48)
[2022-10-06] MEDS: amLODIPine BESYLATE 10 MG TABLET (FP) PO SCH (09:48)
[2022-10-06] MEDS: LOSARTAN POTASSIUM 50 MG TABLET PO SCH (09:48)
[2022-10-06] MEDS: THIAMINE HCL 100 MG TABLET (FP) PO SCH (21:04)
[2022-10-06] MEDS: MELATONIN 5 MG TABLETS PO SCH (21:04)
[2022-10-07] MEDS: HYDROCHLOROTHIAZIDE 12.5 MG CAPSULE (FP) PO SCH (10:28)
[2022-10-07] MEDS: SERTRALINE HCL 50 MG TABLET (FP) PO SCH (10:28)
[2022-10-07] MEDS: LOSARTAN POTASSIUM 50 MG TABLET PO SCH (10:28)
[2022-10-07] MEDS: PRENATAL VITAMINS W/ FOLIC ACID TABLET (FP) PO SCH (10:28)
[2022-10-07] MEDS: QUEtiapine FUMARATE 100 MG TABLET (FP) PO SCH ×2 (10:28→21:05)
[2022-10-07] MEDS: amLODIPine BESYLATE 10 MG TABLET (FP) PO SCH (10:29)
[2022-10-07] MEDS: THIAMINE HCL 100 MG TABLET (FP) PO SCH (21:04)
[2022-10-07] MEDS: MELATONIN 5 MG TABLETS PO SCH (21:04)
[2022-10-08] MEDS: PRENATAL VITAMINS W/ FOLIC ACID TABLET (FP) PO SCH (09:55)
[2022-10-08] MEDS: HYDROCHLOROTHIAZIDE 12.5 MG CAPSULE (FP) PO SCH (09:56)
[2022-10-08] MEDS: amLODIPine BESYLATE 10 MG TABLET (FP) PO SCH (09:56)
[2022-10-08] MEDS: QUEtiapine FUMARATE 100 MG TABLET (FP) PO SCH ×2 (09:56→21:33)
[2022-10-08] MEDS: SERTRALINE HCL 50 MG TABLET (FP) PO SCH (09:56)
[2022-10-08] MEDS: LOSARTAN POTASSIUM 50 MG TABLET PO SCH (09:56)
[2022-10-08] MEDS: THIAMINE HCL 100 MG TABLET (FP) PO SCH (21:32)
[2022-10-08] MEDS: MELATONIN 5 MG TABLETS PO SCH (21:32)
[2022-10-09] MEDS: QUEtiapine FUMARATE 100 MG TABLET (FP) PO SCH ×2 (09:54→21:03)
[2022-10-09] MEDS: amLODIPine BESYLATE 10 MG TABLET (FP) PO SCH (09:54)
[2022-10-09] MEDS: LOSARTAN POTASSIUM 50 MG TABLET PO SCH (09:54)
[2022-10-09] MEDS: SERTRALINE HCL 50 MG TABLET (FP) PO SCH (09:54)
[2022-10-09] MEDS: HYDROCHLOROTHIAZIDE 12.5 MG CAPSULE (FP) PO SCH (09:54)
[2022-10-09] MEDS: PRENATAL VITAMINS W/ FOLIC ACID TABLET (FP) PO SCH (09:54)
[2022-10-09] MEDS: MELATONIN 5 MG TABLETS PO SCH (21:03)
[2022-10-09] MEDS: THIAMINE HCL 100 MG TABLET (FP) PO SCH (21:03)
[2022-10-10] MEDS: LOSARTAN POTASSIUM 50 MG TABLET PO SCH (09:58)
[2022-10-10] MEDS: SERTRALINE HCL 50 MG TABLET (FP) PO SCH (09:58)
[2022-10-10] MEDS: PRENATAL VITAMINS W/ FOLIC ACID TABLET (FP) PO SCH (09:58)
[2022-10-10] MEDS: QUEtiapine FUMARATE 100 MG TABLET (FP) PO SCH ×2 (09:58→21:07)
[2022-10-10] MEDS: HYDROCHLOROTHIAZIDE 12.5 MG CAPSULE (FP) PO SCH (09:58)
[2022-10-10] MEDS: amLODIPine BESYLATE 10 MG TABLET (FP) PO SCH (09:58)
[2022-10-10] MEDS: THIAMINE HCL 100 MG TABLET (FP) PO SCH (21:07)
[2022-10-10] MEDS: MELATONIN 5 MG TABLETS PO SCH (21:07)
[2022-10-11] MEDS: PRENATAL VITAMINS W/ FOLIC ACID TABLET (FP) PO SCH (09:55)
[2022-10-11] MEDS: amLODIPine BESYLATE 10 MG TABLET (FP) PO SCH (09:55)
[2022-10-11] MEDS: QUEtiapine FUMARATE 100 MG TABLET (FP) PO SCH (09:55)
[2022-10-11] MEDS: SERTRALINE HCL 50 MG TABLET (FP) PO SCH (09:55)
[2022-10-11] MEDS: HYDROCHLOROTHIAZIDE 12.5 MG CAPSULE (FP) PO SCH (09:55)
[2022-10-11] MEDS: LOSARTAN POTASSIUM 50 MG TABLET PO SCH (09:55)
[2022-10-11] MEDS: THIAMINE HCL 100 MG TABLET (FP) PO SCH (21:21)
[2022-10-11] MEDS: QUEtiapine FUMARATE 200 MG TABLET PO SCH (21:21)
[2022-10-11] MEDS: MELATONIN 5 MG TABLETS PO SCH (21:22)
[2022-10-12] MEDS: SERTRALINE HCL 50 MG TABLET (FP) PO SCH (09:33)
[2022-10-12] MEDS: PRENATAL VITAMINS W/ FOLIC ACID TABLET (FP) PO SCH (09:33)
[2022-10-12] MEDS: amLODIPine BESYLATE 10 MG TABLET (FP) PO SCH (09:34)
[2022-10-12] MEDS: QUEtiapine FUMARATE 100 MG TABLET (FP) PO SCH (09:34)
[2022-10-12] MEDS: HYDROCHLOROTHIAZIDE 12.5 MG CAPSULE (FP) PO SCH (09:34)
[2022-10-12] MEDS: LOSARTAN POTASSIUM 50 MG TABLET PO SCH (09:34)
[2022-10-12] MEDS: THIAMINE HCL 100 MG TABLET (FP) PO SCH (21:13)
[2022-10-12] MEDS: MELATONIN 5 MG TABLETS PO SCH (21:13)
[2022-10-12] MEDS: QUEtiapine FUMARATE 200 MG TABLET PO SCH (21:13)
[2022-10-13] MEDS: PRENATAL VITAMINS W/ FOLIC ACID TABLET (FP) PO SCH (10:02)
[2022-10-13] MEDS: QUEtiapine FUMARATE 100 MG TABLET (FP) PO SCH (10:02)
[2022-10-13] MEDS: amLODIPine BESYLATE 10 MG TABLET (FP) PO SCH (10:02)
[2022-10-13] MEDS: HYDROCHLOROTHIAZIDE 12.5 MG CAPSULE (FP) PO SCH (10:02)
[2022-10-13] MEDS: SERTRALINE HCL 50 MG TABLET (FP) PO SCH (10:02)
[2022-10-13] MEDS: LOSARTAN POTASSIUM 50 MG TABLET PO SCH (10:02)
[2022-10-13] MEDS: QUEtiapine FUMARATE 200 MG TABLET PO SCH (21:16)
[2022-10-13] MEDS: MELATONIN 5 MG TABLETS PO SCH (21:16)
[2022-10-13] MEDS: THIAMINE HCL 100 MG TABLET (FP) PO SCH (21:17)
[2022-10-14] MEDS: QUEtiapine FUMARATE 100 MG TABLET (FP) PO SCH (09:47)
[2022-10-14] MEDS: amLODIPine BESYLATE 10 MG TABLET (FP) PO SCH (09:47)
[2022-10-14] MEDS: LOSARTAN POTASSIUM 50 MG TABLET PO SCH (09:47)
[2022-10-14] MEDS: SERTRALINE HCL 50 MG TABLET (FP) PO SCH (09:47)
[2022-10-14] MEDS: PRENATAL VITAMINS W/ FOLIC ACID TABLET (FP) PO SCH (09:47)
[2022-10-14] MEDS: HYDROCHLOROTHIAZIDE 12.5 MG CAPSULE (FP) PO SCH (09:47)
[2022-10-14] MEDS: THIAMINE HCL 100 MG TABLET (FP) PO SCH (21:02)
[2022-10-14] MEDS: QUEtiapine FUMARATE 200 MG TABLET PO SCH (21:02)
[2022-10-14] MEDS: MELATONIN 5 MG TABLETS PO SCH (21:02)
[2022-10-15] MEDS: PRENATAL VITAMINS W/ FOLIC ACID TABLET (FP) PO SCH (09:53)
[2022-10-15] MEDS: SERTRALINE HCL 50 MG TABLET (FP) PO SCH (09:54)
[2022-10-15] MEDS: LOSARTAN POTASSIUM 50 MG TABLET PO SCH (09:54)
[2022-10-15] MEDS: amLODIPine BESYLATE 10 MG TABLET (FP) PO SCH (09:54)
[2022-10-15] MEDS: HYDROCHLOROTHIAZIDE 12.5 MG CAPSULE (FP) PO SCH (09:55)
[2022-10-15] MEDS: QUEtiapine FUMARATE 100 MG TABLET (FP) PO SCH (09:55)
[2022-10-15] MEDS: MELATONIN 5 MG TABLETS PO SCH (21:19)
[2022-10-15] MEDS: QUEtiapine FUMARATE 200 MG TABLET PO SCH (21:19)
[2022-10-15] MEDS: THIAMINE HCL 100 MG TABLET (FP) PO SCH (21:19)
[2022-10-16] MEDS: HYDROCHLOROTHIAZIDE 12.5 MG CAPSULE (FP) PO SCH (10:22)
[2022-10-16] MEDS: QUEtiapine FUMARATE 100 MG TABLET (FP) PO SCH (10:22)
[2022-10-16] MEDS: PRENATAL VITAMINS W/ FOLIC ACID TABLET (FP) PO SCH (10:22)
[2022-10-16] MEDS: SERTRALINE HCL 50 MG TABLET (FP) PO SCH (10:22)
[2022-10-16] MEDS: LOSARTAN POTASSIUM 50 MG TABLET PO SCH (10:22)
[2022-10-16] MEDS: amLODIPine BESYLATE 10 MG TABLET (FP) PO SCH (10:22)
[2022-10-16] MEDS: THIAMINE HCL 100 MG TABLET (FP) PO SCH (21:10)
[2022-10-16] MEDS: MELATONIN 5 MG TABLETS PO SCH (21:10)
[2022-10-16] MEDS: QUEtiapine FUMARATE 200 MG TABLET PO SCH (21:10)
[2022-10-17] MEDS: PRENATAL VITAMINS W/ FOLIC ACID TABLET (FP) PO SCH (09:50)
[2022-10-17] MEDS: LOSARTAN POTASSIUM 50 MG TABLET PO SCH (09:51)
[2022-10-17] MEDS: QUEtiapine FUMARATE 100 MG TABLET (FP) PO SCH (09:51)
[2022-10-17] MEDS: amLODIPine BESYLATE 10 MG TABLET (FP) PO SCH (09:51)
[2022-10-17] MEDS: HYDROCHLOROTHIAZIDE 12.5 MG CAPSULE (FP) PO SCH (09:51)
[2022-10-17] MEDS: SERTRALINE HCL 50 MG TABLET (FP) PO SCH (09:51)
[2022-10-17] MEDS: MELATONIN 5 MG TABLETS PO SCH (21:18)
[2022-10-17] MEDS: QUEtiapine FUMARATE 200 MG TABLET PO SCH (21:19)
[2022-10-17] MEDS: THIAMINE HCL 100 MG TABLET (FP) PO SCH (21:19)
[2022-10-18] MEDS: PRENATAL VITAMINS W/ FOLIC ACID TABLET (FP) PO SCH (10:12)
[2022-10-18] MEDS: SERTRALINE HCL 50 MG TABLET (FP) PO SCH (10:12)
[2022-10-18] MEDS: LOSARTAN POTASSIUM 50 MG TABLET PO SCH (10:12)
[2022-10-18] MEDS: amLODIPine BESYLATE 10 MG TABLET (FP) PO SCH (10:12)
[2022-10-18] MEDS: HYDROCHLOROTHIAZIDE 12.5 MG CAPSULE (FP) PO SCH (10:13)
[2022-10-18] MEDS: QUEtiapine FUMARATE 100 MG TABLET (FP) PO SCH (10:13)
[2022-10-18] MEDS: THIAMINE HCL 100 MG TABLET (FP) PO SCH (21:08)
[2022-10-18] MEDS: MELATONIN 5 MG TABLETS PO SCH (21:08)
[2022-10-18] MEDS: QUEtiapine FUMARATE 200 MG TABLET PO SCH (21:08)
[2022-10-19] MEDS: amLODIPine BESYLATE 10 MG TABLET (FP) PO SCH (09:44)
[2022-10-19] MEDS: QUEtiapine FUMARATE 100 MG TABLET (FP) PO SCH (09:44)
[2022-10-19] MEDS: HYDROCHLOROTHIAZIDE 12.5 MG CAPSULE (FP) PO SCH (09:44)
[2022-10-19] MEDS: LOSARTAN POTASSIUM 50 MG TABLET PO SCH (09:44)
[2022-10-19] MEDS: SERTRALINE HCL 50 MG TABLET (FP) PO SCH (09:44)
[2022-10-19] MEDS: PRENATAL VITAMINS W/ FOLIC ACID TABLET (FP) PO SCH (09:44)
[2022-10-19] MEDS: QUEtiapine FUMARATE 200 MG TABLET PO SCH (21:13)
[2022-10-19] MEDS: MELATONIN 5 MG TABLETS PO SCH (21:13)
[2022-10-19] MEDS: THIAMINE HCL 100 MG TABLET (FP) PO SCH (21:13)
[2022-10-20 06:49] VITALS: RESP 18; TEMP 97.8
[2022-10-20 07:16] VITALS: BP 156/95; PULSE 72
[2022-10-20] MEDS: LOSARTAN POTASSIUM 50 MG TABLET PO SCH (09:02)
[2022-10-20] MEDS: amLODIPine BESYLATE 10 MG TABLET (FP) PO SCH (09:02)
[2022-10-20] MEDS: HYDROCHLOROTHIAZIDE 12.5 MG CAPSULE (FP) PO SCH (09:02)
[2022-10-20] MEDS: SERTRALINE HCL 50 MG TABLET (FP) PO SCH (09:02)
[2022-10-20] MEDS: QUEtiapine FUMARATE 100 MG TABLET (FP) PO SCH (09:02)
[2022-10-20] MEDS: PRENATAL VITAMINS W/ FOLIC ACID TABLET (FP) PO SCH (09:03)
== END 2022-10-20 09:13 | disposition home or self-care (01) | DRG 895 ==
LOC: YASAS 11:13 → Y3N 17:21 → Y3W 10-02 13:47
PROVIDERS: ADMIT Allergy & Immunology; ATTEND Psychiatry & Neurology Pain Medicine
PROC: HZ42ZZZ Group Counseling for Substance Abuse Treatment, Cognitive-Behavioral (ICD-10-PCS; principal; 2022-09-27)
DX: F10.20 Alcohol dependence, uncomplicated (principal); F14.20 Cocaine dependence, uncomplicated; F19.282 Other psychoactive substance dependence with psychoactive substance-induced sleep disorder; F16.10 Hallucinogen abuse, uncomplicated; F12.20 Cannabis dependence, uncomplicated; F17.210 Nicotine dependence, cigarettes, uncomplicated; F25.9 Schizoaffective disorder, unspecified; F31.9 Bipolar disorder, unspecified; I10 Essential (primary) hypertension; R76.11 Nonspecific reaction to tuberculin skin test without active tuberculosis; R76.8 Other specified abnormal immunological findings in serum; Z86.19 Personal history of other infectious and parasitic diseases; Z86.11 Personal history of tuberculosis; Z59.00 Homelessness unspecified; Z88.8 Allergy status to other drugs, medicaments and biological substances; T25.212D Burn of second degree of left ankle, subsequent encounter; X19.XXXD Contact with other heat and hot substances, subsequent encounter
CPT/HCPCS: 36415; 71046-TC-FY; 80053; 85027; 86593; 86780; 87389; C9803-CS; Q0162; U0003; U0005

== ENCOUNTER 2023-06-21 16:27 | Inpatient (IN) | payer OTHER ==
[2023-06-21 18:22] VITALS: BMI 33.2
[2023-06-21] MEDS ORDERED: METHOCARBAMOL 500 MG TABLET PO PRN (19:51)
[2023-06-21] MEDS ORDERED: BENZOCAINE/MENTHOL (CHLORASEPTIC ) LOZENGE MM PRN (19:51)
[2023-06-21] MEDS ORDERED: MAGNESIUM HYDROX 2400MG/30ML ORAL SUSPENSION 30 ML CUP PO PRN (19:51)
[2023-06-21] MEDS ORDERED: IBUPROFEN 600 MG TABLET (FP) PO PRN (19:51)
[2023-06-21] MEDS ORDERED: NALOXONE HCL 0.4 MG/ML VIAL IM PRN (19:51)
[2023-06-21] MEDS ORDERED: guaiFENesin 600 MG TABLET.ER (FP) PO PRN (19:51)
[2023-06-21] MEDS ORDERED: POLYETHYLENE GLYCOL (HEALTHYLAX) 3350 17 GM PACKET PO PRN (19:51)
[2023-06-21] MEDS ORDERED: NALOXONE HCL (KLOXXADO) 8 MG SPRAY NS PRN (19:51)
[2023-06-21] MEDS ORDERED: ONDANSETRON *ODT* 4 MG TABLET SL PRN (19:51)
[2023-06-21] MEDS ORDERED: NICOTINE POLACRILEX 2 MG GUM BUC PRN (19:51)
[2023-06-21] MEDS ORDERED: BENZONATATE 200 MG CAPSULE PO PRN (19:51)
[2023-06-21] MEDS ORDERED: IBUPROFEN 400 MG TABLET (FP) PO PRN (19:51)
[2023-06-21] MEDS ORDERED: MAG HYDROX/AL HYDROX/SIMETH 30 ML UNIT-DOSE CUP PO PRN (19:51)
[2023-06-21] MEDS ORDERED: ACETAMINOPHEN 325 MG TABLET (FP) PO PRN (19:51)
[2023-06-21] MEDS ORDERED: BISMUTH SUBSALICYLATE 524 MG/30 ML PO PRN (19:51)
[2023-06-21] MEDS ORDERED: LOPERAMIDE HCL 2 MG CAPSULE PO PRN (19:51)
[2023-06-21] MEDS: MELATONIN 5 MG TABLETS PO SCH (23:17)
[2023-06-21] MEDS: THIAMINE HCL 100 MG TABLET (FP) PO SCH (23:17)
[2023-06-22] MEDS: NICOTINE 14 MG/24 HOURS TOPICAL PATCH TD SCH (09:38)
[2023-06-22] MEDS: PRENATAL VITAMINS W/ FOLIC ACID TABLET (FP) PO SCH (09:38)
[2023-06-22] MEDS ORDERED: chlordiazePOXIDE HCL 25 MG CAPSULE PO PRN (09:55)
[2023-06-22] MEDS ORDERED: amLODIPine BESYLATE 10 MG TABLET (FP) PO SCH (10:15)
[2023-06-22] MEDS: NIFEdipine E.R 60 MG TABLET PO SCH (10:36)
[2023-06-22] MEDS: LOSARTAN POTASSIUM 50 MG TABLET PO SCH ×2 (10:36→22:08)
[2023-06-22] MEDS: chlordiazePOXIDE HCL 25 MG CAPSULE PO SCH ×3 (10:36→22:08)
[2023-06-22] MEDS: HYDROCHLOROTHIAZIDE 12.5 MG CAPSULE (FP) PO SCH (10:36)
[2023-06-22 11:38] LABS: CHLORIDE 106 mmol/L (98-107); HEMATOCRIT 42.4 % (35.4-49); HEMOGLOBIN 13.8 GM/dL (11.7-16.9); MCH 26.7 pg (25.7-33.7); MCHC 32.6 g/dl (32.0-35.9); MEAN PLT VOLUME 8.1 fl (7.5-11.1); PLATELET COUNT 246 10^3/uL (134-434); POTASSIUM 3.9 mmol/L (3.5-5.1); RBC 5.16 M/mm3 (4.00-5.60); RDW 15.3 % (11.9-15.9); SODIUM 142 mmol/L (136-145)
[2023-06-22 11:46] LABS: CALCIUM 8.8 mg/dL (8.5-10.1)
[2023-06-22 11:47] LABS: ALBUMIN 3.7 g/dl (3.4-5.0); ANION GAP 6 mmol/L (4-13); BLOOD UREA NITROGEN 17.8 mg/dL (7-18); CO2 30 mmol/L (21-32); GLUCOSE,RANDOM 97 mg/dL (74-106); SGPT/ALT 27 U/L (13-61)
[2023-06-22 11:49] LABS: BILIRUBIN,TOTAL 0.4 mg/dL (0.2-1); TOT PROT 7.6 g/dl (6.4-8.2)
[2023-06-22 11:50] LABS: SGOT/AST 30 U/L (15-37)
[2023-06-22 11:51] LABS: ALK PHOS 78 U/L (45-117)
[2023-06-22] MEDS: MELATONIN 5 MG TABLETS PO SCH (22:08)
[2023-06-22] MEDS: THIAMINE HCL 100 MG TABLET (FP) PO SCH (22:08)
[2023-06-22] MEDS: QUEtiapine FUMARATE 100 MG TABLET (FP) PO SCH (22:08)
[2023-06-23] MEDS: chlordiazePOXIDE HCL 25 MG CAPSULE PO SCH ×4 (05:45→22:00)
[2023-06-23] MEDS: LOSARTAN POTASSIUM 50 MG TABLET PO SCH ×2 (10:32→22:00)
[2023-06-23] MEDS: HYDROCHLOROTHIAZIDE 12.5 MG CAPSULE (FP) PO SCH (10:32)
[2023-06-23] MEDS: QUEtiapine FUMARATE 100 MG TABLET (FP) PO SCH ×2 (10:32→22:00)
[2023-06-23] MEDS: NICOTINE 14 MG/24 HOURS TOPICAL PATCH TD SCH (10:32)
[2023-06-23] MEDS: PRENATAL VITAMINS W/ FOLIC ACID TABLET (FP) PO SCH (10:32)
[2023-06-23] MEDS: SERTRALINE HCL 50 MG TABLET (FP) PO SCH (10:32)
[2023-06-23] MEDS ORDERED: HYDROCHLOROTHIAZIDE 12.5 MG CAPSULE (FP) PO SCH (10:34)
[2023-06-23] MEDS: NIFEdipine E.R 60 MG TABLET PO SCH (10:35)
[2023-06-23] MEDS: hydrOXYzine PAMOATE 25 MG CAPSULE (FP) PO PRN (19:24)
[2023-06-23] MEDS: THIAMINE HCL 100 MG TABLET (FP) PO SCH (22:00)
[2023-06-23] MEDS: MELATONIN 5 MG TABLETS PO SCH (22:00)
[2023-06-24] MEDS ORDERED: chlordiazePOXIDE HCL 10 MG CAPSULE PO PRN
[2023-06-24] MEDS: chlordiazePOXIDE HCL 10 MG CAPSULE PO SCH ×4 (06:09→22:07)
[2023-06-24] MEDS: QUEtiapine FUMARATE 100 MG TABLET (FP) PO SCH ×2 (09:36→22:07)
[2023-06-24] MEDS: LOSARTAN POTASSIUM 50 MG TABLET PO SCH ×2 (09:36→22:07)
[2023-06-24] MEDS: NIFEdipine E.R 60 MG TABLET PO SCH (09:36)
[2023-06-24] MEDS: PRENATAL VITAMINS W/ FOLIC ACID TABLET (FP) PO SCH (09:36)
[2023-06-24] MEDS: SERTRALINE HCL 50 MG TABLET (FP) PO SCH (09:37)
[2023-06-24] MEDS: NICOTINE 14 MG/24 HOURS TOPICAL PATCH TD SCH (09:38)
[2023-06-24] MEDS: HYDROCHLOROTHIAZIDE 25 MG TABLET (FP) PO SCH (09:39)
[2023-06-24] MEDS: THIAMINE HCL 100 MG TABLET (FP) PO SCH (22:07)
[2023-06-24] MEDS: MELATONIN 5 MG TABLETS PO SCH (22:35)
[2023-06-25] MEDS: chlordiazePOXIDE HCL 10 MG CAPSULE PO SCH ×2 (05:08→17:15)
[2023-06-25] MEDS: PRENATAL VITAMINS W/ FOLIC ACID TABLET (FP) PO SCH (10:25)
[2023-06-25] MEDS: LOSARTAN POTASSIUM 50 MG TABLET PO SCH ×2 (10:25→22:02)
[2023-06-25] MEDS: HYDROCHLOROTHIAZIDE 25 MG TABLET (FP) PO SCH (10:25)
[2023-06-25] MEDS: QUEtiapine FUMARATE 100 MG TABLET (FP) PO SCH ×2 (10:25→22:02)
[2023-06-25] MEDS: NICOTINE 14 MG/24 HOURS TOPICAL PATCH TD SCH (10:25)
[2023-06-25] MEDS: NIFEdipine E.R 60 MG TABLET PO SCH (10:25)
[2023-06-25] MEDS: SERTRALINE HCL 50 MG TABLET (FP) PO SCH (10:38)
[2023-06-25] MEDS: hydrOXYzine PAMOATE 25 MG CAPSULE (FP) PO PRN (13:14)
[2023-06-25] MEDS: THIAMINE HCL 100 MG TABLET (FP) PO SCH (22:02)
[2023-06-25] MEDS: MELATONIN 5 MG TABLETS PO SCH (22:02)
[2023-06-26] MEDS ORDERED: chlordiazePOXIDE HCL 10 MG CAPSULE PO ONE (05:00)
[2023-06-26 06:17] VITALS: BP 140/88; PULSE 54; RESP 18; TEMP 98.2
[2023-06-26] MEDS: NICOTINE 14 MG/24 HOURS TOPICAL PATCH TD SCH (09:20)
[2023-06-26] MEDS: PRENATAL VITAMINS W/ FOLIC ACID TABLET (FP) PO SCH (09:25)
[2023-06-26] MEDS: QUEtiapine FUMARATE 100 MG TABLET (FP) PO SCH (09:25)
[2023-06-26] MEDS: HYDROCHLOROTHIAZIDE 25 MG TABLET (FP) PO SCH (09:25)
[2023-06-26] MEDS: LOSARTAN POTASSIUM 50 MG TABLET PO SCH (09:25)
[2023-06-26] MEDS: NIFEdipine E.R 60 MG TABLET PO SCH (09:25)
[2023-06-26] MEDS: SERTRALINE HCL 50 MG TABLET (FP) PO SCH (09:26)
== END 2023-06-26 10:56 | disposition home or self-care (01) | DRG 897 ==
LOC: YASAS 16:27 → Y6N 20:55
PROVIDERS: ADMIT Allergy & Immunology; ATTEND Surgery
PROC: HZ2ZZZZ Detoxification Services for Substance Abuse Treatment (ICD-10-PCS; principal; 2023-06-21)
DX: F10.230 Alcohol dependence with withdrawal, uncomplicated (principal); Z59.01 Sheltered homelessness; F14.10 Cocaine abuse, uncomplicated; F12.20 Cannabis dependence, uncomplicated; F17.210 Nicotine dependence, cigarettes, uncomplicated; F25.9 Schizoaffective disorder, unspecified; F31.9 Bipolar disorder, unspecified; I10 Essential (primary) hypertension; Z86.11 Personal history of tuberculosis; Z86.19 Personal history of other infectious and parasitic diseases; Z88.8 Allergy status to other drugs, medicaments and biological substances; Z56.0 Unemployment, unspecified
CPT/HCPCS: 36415; 80053; 80307; 85027; 86593; 86780; 87635

== ENCOUNTER 2024-01-31 08:22 | Inpatient (IN) | payer OTHER ==
[2024-01-31 08:41] VITALS: BMI 31.4
[2024-01-31] MEDS ORDERED: NALOXONE HCL 0.4 MG/ML VIAL IM PRN (11:17)
[2024-01-31] MEDS ORDERED: ACETAMINOPHEN 325 MG TABLET (FP) PO PRN (11:17)
[2024-01-31] MEDS ORDERED: METHOCARBAMOL 500 MG TABLET PO PRN (11:17)
[2024-01-31] MEDS ORDERED: POLYETHYLENE GLYCOL (HEALTHYLAX) 3350 17 GM PACKET PO PRN (11:17)
[2024-01-31] MEDS ORDERED: BENZOCAINE/MENTHOL (CHLORASEPTIC ) LOZENGE MM PRN (11:17)
[2024-01-31] MEDS ORDERED: BISMUTH SUBSALICYLATE 524 MG/30 ML PO PRN (11:17)
[2024-01-31] MEDS ORDERED: guaiFENesin 600 MG TABLET.ER (FP) PO PRN (11:17)
[2024-01-31] MEDS ORDERED: LOPERAMIDE HCL 2 MG CAPSULE PO PRN (11:17)
[2024-01-31] MEDS ORDERED: IBUPROFEN 400 MG TABLET (FP) PO PRN (11:17)
[2024-01-31] MEDS ORDERED: hydrOXYzine PAMOATE 25 MG CAPSULE (FP) PO PRN (11:17)
[2024-01-31] MEDS ORDERED: ONDANSETRON *ODT* 4 MG TABLET SL PRN (11:17)
[2024-01-31] MEDS ORDERED: DICYCLOMINE HCL 10 MG CAPSULE PO PRN (11:17)
[2024-01-31] MEDS ORDERED: MAG HYDROX/AL HYDROX/SIMETH 30 ML UNIT-DOSE CUP PO PRN (11:17)
[2024-01-31] MEDS ORDERED: NALOXONE (NARCAN) HCL 4 MG/0.1 ML SPRAY NS PRN (11:17)
[2024-01-31] MEDS ORDERED: BENZONATATE 200 MG CAPSULE PO PRN (11:17)
[2024-01-31] MEDS ORDERED: MAGNESIUM HYDROX 2400MG/30ML ORAL SUSPENSION 30 ML CUP PO PRN (11:17)
[2024-01-31] MEDS: diazePAM 5 MG TABLET PO PRN (12:18)
[2024-01-31] MEDS: LOSARTAN POTASSIUM 50 MG TABLET PO SCH (14:58)
[2024-01-31] MEDS: HYDROCHLOROTHIAZIDE 25 MG TABLET (FP) PO SCH (14:59)
[2024-01-31] MEDS: diazePAM 5 MG TABLET PO SCH (17:50)
[2024-01-31] MEDS: MELATONIN 5 MG TABLETS PO SCH (22:31)
[2024-01-31] MEDS: THIAMINE 100 MG TABLET PO SCH (22:32)
[2024-02-01] MEDS: IBUPROFEN 600 MG TABLET (FP) PO PRN (10:38)
[2024-02-01] MEDS: NIFEdipine E.R 60 MG TABLET PO SCH (10:39)
[2024-02-01] MEDS: PRENATAL VITAMINS W/ FOLIC ACID TABLET (FP) PO SCH (10:40)
[2024-02-01 11:48] LABS: HEMATOCRIT 37.5 % (35.4-49); HEMOGLOBIN 12.8 GM/dL (11.7-16.9); MCH 27.4 pg (25.7-33.7); MCHC 34.2 g/dl (32.0-35.9); MEAN CELL VOLUME 80.1 fl (80-96); MEAN PLT VOLUME 7.4 fl (7.5-11.1); PLATELET COUNT 289 10^3/uL (134-434); RBC 4.68 M/mm3 (4.00-5.60); RDW 14.6 % (11.9-15.9); WHITE BLOOD COUNT 4.5 K/mm3 (4.0-10.0)
[2024-02-01 11:58] LABS: CALCIUM 9.4 mg/dL (8.5-10.1)
[2024-02-01 11:59] LABS: ALBUMIN 3.6 g/dl (3.4-5.0); BLOOD UREA NITROGEN 16.3 mg/dL (7-18)
[2024-02-01 12:01] LABS: CREATININE 1.1 mg/dL (0.55-1.3)
[2024-02-01 12:03] LABS: BILIRUBIN,TOTAL 0.3 mg/dL (0.2-1)
[2024-02-01] MEDS: QUEtiapine FUMARATE 100 MG TABLET (FP) PO SCH (22:10)
[2024-02-02] MEDS: diazePAM 5 MG TABLET PO SCH (06:14)
[2024-02-02 08:56] VITALS: RESP 16
[2024-02-02] MEDS: QUEtiapine FUMARATE 50 MG TABLET PO SCH (10:27)
[2024-02-02 13:18] VITALS: BP 110/66; PULSE 63; TEMP 98.7
[2024-02-03] MEDS ORDERED: diazePAM 5 MG TABLET PO SCH (06:00)
[2024-02-04] MEDS ORDERED: diazePAM 5 MG TABLET PO ONE (06:00)
== END 2024-02-02 18:16 | disposition left against medical advice (07) | DRG 894 ==
LOC: YASAS 08:22 → Y3N 11:41
PROVIDERS: ADMIT Allergy & Immunology; ATTEND Surgery
PROC: HZ2ZZZZ Detoxification Services for Substance Abuse Treatment (ICD-10-PCS; principal; 2024-01-31)
DX: F10.230 Alcohol dependence with withdrawal, uncomplicated (principal); F14.20 Cocaine dependence, uncomplicated; Z59.01 Sheltered homelessness; F12.20 Cannabis dependence, uncomplicated; F17.210 Nicotine dependence, cigarettes, uncomplicated; F25.9 Schizoaffective disorder, unspecified; F31.9 Bipolar disorder, unspecified; G47.00 Insomnia, unspecified; I10 Essential (primary) hypertension; Z86.19 Personal history of other infectious and parasitic diseases; Z88.8 Allergy status to other drugs, medicaments and biological substances; Z56.0 Unemployment, unspecified; Z91.199 Patient's noncompliance with other medical treatment and regimen due to unspecified reason
CPT/HCPCS: 36415; 71046-TC-FY; 80053; 80305; 80307; 85027; 86593; 86780; 93005; 93010